=== PATIENT | female | born 1950 | race Caucasian/White ===

== ENCOUNTER 2017-11-04 19:15 | Emergency (ER) | payer BC ==
[2017-11-04] MEDS ORDERED: GlucaGen 1 MG IV ONE (19:34)
--- NOTE | 2017-11-04 19:39 | ERPHSYRPT ---
- History of Present Illness Time Seen by Provider: 11/04/17 19:34 Source: patient Exam Limitations: no limitations Patient Subjective Stated Complaint: pt states she thinks she has a piece pf chicken stuck in her throat. states she hasnt been able to swallow anything since. Triage Nursing Assessment: pt alert and oriented, answes questions approp. pt ambulatory with steady gait noted, respirations nonlabored with lungs cta. pt unable to swallow, spitting into emesis bag. skin hoawrd, warm, and dry. Physician History: The patient is a 67-year-old female complaining that while eating chicken and cucumbers, it suddenly became impossible for her to swallow the food or even water. This began about 30 minutes ago. She has tried to swallow water but she regurgitates it back up. She is unable to swallow her saliva. She denies pain. This has never happened to her before. She denies shortness of breath. Her past medical history is significant for COPD. Timing/Duration: abrupt onset, this evening Severity: moderate ENT Location: throat Prearrival Treatment: no prearrival treatment Modifying Factors: Improves With: nothing Associated Symptoms: difficulty swallowing Allergies/Adverse Reactions: No Known Drug Allergies Allergy (Verified 11/04/17 19:42) Home Medications: Albuterol 2.5 mg/3 ml Neb [Proventil 2.5 mg/3 ml Neb] 2.5 mg IH Q4H PRN PRN 11/18/12 [History] Albuterol Common Canister [Proventil Common Canister] 1 puff IH Q4HPRN PRN 03/24/15 [History] Mometasone/Formoterol [Dulera 200 Mcg/5 Mcg Inhaler] 2 puff IH BID 03/24/15 [ History] Hx Tetanus, Diphtheria Vaccination/Date Given: No Hx Influenza Vaccination/Date Given: No Hx Pneumococcal Vaccination/Date Given: No Immunizations Up to Date: No - Review of Systems Constitutional: No Fever, No Chills Eyes: No Symptoms Ears, Nose, & Throat: Other (unable to swallow) Respiratory: No Cough, No Dyspnea Cardiac: No Chest Pain, No Edema, No Syncope Abdominal/Gastrointestinal: No Abdominal Pain, No Nausea, No Vomiting, No Diarrhea Genitourinary Symptoms: No Dysuria Musculoskeletal: No Back Pain, No Neck Pain Skin: No Rash Neurological: No Dizziness, No Focal Weakness, No Sensory Changes Psychological: No Symptoms Endocrine: No Symptoms Hematologic/Lymphatic: No Symptoms Immunological/Allergic: No Symptoms All Other Systems: Reviewed and Negative - Past Medical History Pertinent Past Medical History: Yes Neurological History: No Pertinent History ENT History: No Pertinent History Cardiac History: No Pertinent History Respiratory History: Bronchitis, COPD, Emphysema Endocrine Medical History: No Pertinent History Musculoskeletal History: No Pertinent History GI Medical History: No Pertinent History History: No Pertinent History Psycho-Social History: No Pertinent History Female Reproductive Disorders: No Pertinent History - Past Surgical History Past Surgical History: No Neuro Surgical History: No Pertinent History Cardiac: No Pertinent History Respiratory: No Pertinent History Gastrointestinal: No Pertinent History Genitourinary: No Pertinent History Musculoskeletal: No Pertinent History Female Surgical History: No Pertinent History - Social History Smoking Status: Current every day smoker How long have you smoked: 30yrs Exposure to second hand smoke: No Drug Use: none Patient Lives Alone: No - Nursing Vital Signs Nursing Vital Signs: Initial Vital Signs Temperature 98.0 F 11/04/17 19:18 Pulse Rate 75 11/04/17 19:18 Respiratory Rate 18 11/04/17 19:18 Blood Pressure 151/77 11/04/17 19:18 O2 Sat by Pulse Oximetry 97 11/04/17 19:18 Pain Scale Pain Intensity 0 - Physical Exam General Appearance: mild distress, cachetic, thin Eye Exam: bilateral eye: normal inspection, PERRL Ear Exam: bilateral ear: auricle normal Nasal Exam: normal inspection Throat Exam: excessive drooling (no FB observed in throat. Pt is expectorating her own saliva.) Neck Exam: supple Cardiovascular/Respiratory Exam: normal breath sounds, regular rate/rhythm Abdominal Exam: non-tender, soft Neurologic Exam: alert, oriented x 3, sensation nml, No motor deficits Skin Exam: normal color, warm, dry SpO2 Interpretation: normal SpO2: 97 Oxygen Delivery: Room Air Ordered Tests: Active Orders 24 hr Category Date Time Status IV Insertion STAT Care 11/04/17 19:34 Active Medication Summary Discontinued Medications Generic Name Dose Route Start Last Admin Trade Name Freq PRN Reason Stop Dose Admin Glucagon 1 mg 11/04/17 19:34 11/04/17 19:48 Glucagen 1 Mg IV 11/04/17 19:35 1 mg STAT ONE Administration Glucagon Confirm 11/04/17 19:43 Glucagen 1 Mg Administered 11/04/17 19:44 Dose 1 mg .ROUTE .STK-MED ONE - Progress Progress: improved Progress Note: 11/04/17 20:31 After glucagon 1 mg IV, pt is now feeling better and can drink liquids without difficulty. Counseled pt/family regarding: diagnosis, need for follow-up - Departure Time of Disposition: 20:32 Departure Disposition: Home Clinical Impression: Esophageal obstruction due to food impaction Condition: Stable Critical Care Time: No Referrals: EILEEN MAXWELL [Nurse Practioner] - Additional Instructions: You had a food bolus stuck in your esophagus that was relieved with glucagon 1 mg by IV in the ER. Chew your food thoroughly before swallowing. Please follow -up with your primary medical care doctor for possible referral to an ENT specialist.
[2017-11-04] MEDS ORDERED: GlucaGen 1 MG ONE (19:43)
[2017-11-04 20:50] VITALS: BP 130/76; PULSE 76; O2SAT 99
== END 2017-11-04 20:50 | disposition home or self-care (01) ==
LOC: ED 19:15
DX: T18.128A Food in esophagus causing other injury, initial encounter (principal); Z79.899 Other long term (current) drug therapy
CPT/HCPCS: 36000; 96374; 99284; J1610

== ENCOUNTER 2018-04-28 10:31 | Emergency (ER) | payer BC ==
--- NOTE | 2018-04-28 11:17 | ERPHSYRPT ---
- History of Present Illness Time Seen by Provider: 04/28/18 11:11 Source: patient Exam Limitations: no limitations Patient Subjective Stated Complaint: pt here for weakness,chills and not feeling well for a week, was seen two fridays before and placed on a antiboitcs and steriods and states she if not any better. pt co pain to shoulder blades Triage Nursing Assessment: pt alert, shivering, weak, walked in, resp labored, wheezes heard worse to left side, cough productive green sputum Physician History: The patient is a 67-year-old thin female who left work this morning because she was weak, had chills, and continues to cough. About 10 days ago she saw Jaclyn Herrera for a cough. She was given a steroid injection, prednisone orally to take , and ascription for levofloxacin for 5 days. She still has the cough and now is weak. She also complains of pain in her right upper back. She denies being any more short of breath than usual. Her past medical history is significant for COPD. She smokes cigarettes. She did not receive a pneumonia or influenza vaccination. Timing/Duration: day(s) (), gradual onset, worse Cough Quality/Degree: moderate, dry cough Possible Cause: occasional episodes, smoke exposure Modifying Factors: Improves With: nothing Associated Symptoms: chills, cough Allergies/Adverse Reactions: No Known Drug Allergies Allergy (Verified 04/28/18 10:49) Home Medications: Albuterol 2.5 mg/0.5 ml [PROVENTIL Solution 2.5 MG/0.5 ML] 2.5 mg QID [History] Mometasone/Formoterol [Dulera 200 Mcg/5 Mcg Inhaler] 2 puffs DAILY 04/28/18 [ History] Prednisone 20 mg [Deltasone 20 mg] 20 mg DAILY 04/28/18 [History] levoFLOXacin [Levofloxacin] 500 mg DAILY 04/28/18 [History] Hx Tetanus, Diphtheria Vaccination/Date Given: No Hx Influenza Vaccination/Date Given: No Hx Pneumococcal Vaccination/Date Given: No Immunizations Up to Date: Yes - Review of Systems Constitutional: Chills, Fatigue, Weakness Eyes: No Symptoms Ears, Nose, & Throat: No Symptoms Respiratory: Cough Cardiac: No Chest Pain, No Edema, No Syncope Abdominal/Gastrointestinal: No Abdominal Pain, No Nausea, No Vomiting, No Diarrhea Genitourinary Symptoms: No Dysuria Musculoskeletal: No Back Pain, No Neck Pain Skin: No Rash Neurological: No Dizziness, No Focal Weakness, No Sensory Changes Psychological: No Symptoms Endocrine: No Symptoms Hematologic/Lymphatic: No Symptoms Immunological/Allergic: No Symptoms All Other Systems: Reviewed and Negative - Past Medical History Pertinent Past Medical History: Yes Neurological History: No Pertinent History ENT History: No Pertinent History Cardiac History: No Pertinent History Respiratory History: Bronchitis, COPD, Emphysema Endocrine Medical History: No Pertinent History Musculoskeletal History: No Pertinent History GI Medical History: No Pertinent History History: No Pertinent History Psycho-Social History: No Pertinent History Female Reproductive Disorders: No Pertinent History - Past Surgical History Past Surgical History: No Neuro Surgical History: No Pertinent History Cardiac: No Pertinent History Respiratory: No Pertinent History Gastrointestinal: No Pertinent History Genitourinary: No Pertinent History Musculoskeletal: No Pertinent History Female Surgical History: No Pertinent History - Social History Smoking Status: Current every day smoker How long have you smoked: 30yrs Exposure to second hand smoke: Yes Drug Use: none Patient Lives Alone: No - Female History Hx Last Menstrual Period: post Hx Now: No - Nursing Vital Signs Nursing Vital Signs: Initial Vital Signs Temperature 100.0 F 04/28/18 10:39 Pulse Rate 98 H 04/28/18 10:39 Respiratory Rate 38 H 04/28/18 10:39 Blood Pressure 152/81 04/28/18 10:39 O2 Sat by Pulse Oximetry 92 L 04/28/18 10:39 Pain Scale Pain Intensity 4 - Physical Exam General Appearance: mild distress, cachetic, thin Eye Exam: PERRL/EOMI, eyes nml inspection Ears, Nose, Throat Exam: normal ENT inspection, TMs normal, pharynx normal, moist mucous membranes Neck Exam: normal inspection, non-tender, supple, full range of motion Respiratory Exam: rhonchi, No respiratory distress Cardiovascular Exam: regular rate/rhythm, normal heart sounds Gastrointestinal/Abdomen Exam: soft, No tenderness Pelvic Exam: not done Rectal Exam: not done Back Exam: normal inspection, No CVA tenderness, No vertebral tenderness Extremity Exam: normal inspection, normal range of motion Neurologic Exam: alert, oriented x 3, cooperative, normal mood/affect, sensation nml, No motor deficits Skin Exam: normal color, warm, dry, No rash Lymphatic Exam: No adenopathy SpO2 Interpretation: borderline oxygenation SpO2: 92 Oxygen Delivery: Room Air - Radiology Exams Chest X-ray Interpretation: Interpreted by me, Infiltrates (subtle infiltrate at left lung base, comp 2V chest 09/03/15.) Ordered Tests: Active Orders 24 hr Category Date Time Status IV Insertion STAT Care 04/28/18 11:19 Active Pulse Oximetry (ED) STAT Care 04/28/18 11:19 Active CHEST 2 VIEWS (PA AND LAT) Stat Exams 04/28/18 11:19 Taken CHEST WITH CONTRAST [CT] Stat Exams 04/28/18 12:45 Ordered BLOOD CULTURE Stat Lab 04/28/18 11:45 Received CBC W DIFF Stat Lab 04/28/18 10:50 Completed CMP Stat Lab 04/28/18 10:50 Completed Lactic Acid Stat Lab 04/28/18 11:19 Results Manual Differential NC Stat Lab 04/28/18 10:50 Completed TROPONIN Q3H Lab 04/28/18 10:50 Completed TROPONIN Q3H Lab 04/28/18 14:30 Ordered TROPONIN Q3H Lab 04/28/18 17:30 Ordered TROPONIN Q3H Lab 04/28/18 20:30 Ordered TROPONIN Q3H Lab 04/28/18 23:30 Ordered Respiratory Nebulizer STAT RT 04/28/18 11:20 Completed Respiratory Therapy Assessment DAILY RT 04/28/18 11:34 Completed Medication Summary Discontinued Medications Generic Name Dose Route Start Last Admin Trade Name Freq PRN Reason Stop Dose Admin Acetaminophen 1,000 mg 04/28/18 11:20 04/28/18 11:29 Tylenol Extra Strength 500 Mg PO 04/28/18 11:21 1,000 mg STAT STA Administration Acetaminophen Confirm 04/28/18 11:27 Tylenol Extra Strength 500 Mg Administered 04/28/18 11:28 Dose 1,000 mg .ROUTE .STK-MED ONE Albuterol/Ipratropium 3 ml 04/28/18 11:19 04/28/18 11:34 Duoneb 0.5-3 Mg/3 Ml Neb IH 04/28/18 11:20 3 ml STAT ONE Administration Albuterol/Ipratropium Confirm 04/28/18 11:37 Duoneb 0.5-3 Mg/3 Ml Neb Administered 04/28/18 11:38 Dose 3 ml IH .STK-MED ONE Lab/Rad Data: Laboratory Result Diagrams 04/28/18 10:50 04/28/18 10:50 Laboratory Results 04/28/18 04/28/18 04/28/18 Range/Units 11:45 11:19 10:50 WBC (4.0-10.5) K/mm3 RBC (4.1-5.4) M/mm3 Hgb (12.0-16.0) gm/dl Hct (35-47) % MCV (78-100) fl MCH (26-32) pg MCHC (32-36) g/dl RDW (11.5-14.0) % Plt Count (150-450) K/mm3 MPV (6-9.5) fl Segmented Neutrophils (36.0-66.0) % Band Neutrophils (0.0-2.0) % Lymphocytes (Manual) (24-44) % Monocytes (Manual) (0.0-12.0) % Platelet Estimate (NORMAL) RBC Morphology Sodium (137-145) mmol/L Potassium (3.5-5.1) mmol/L Chloride (98-107) mmol/L Carbon Dioxide (22-30) mmol/L Anion Gap (5-15) MEQ/L BUN (7-17) mg/dL Creatinine (0.52-1.04) mg/dL Estimated GFR ML/MIN Glucose (74-106) mg/dL Lactic Acid 2.1 H (0.4-2.0) Calcium (8.4-10.2) mg/dL Total Bilirubin (0.2-1.3) mg/dL AST (14-36) U/L ALT (0-35) U/L Alkaline Phosphatase (38-126) U/L Troponin I < 0.012 (0.000-0.034) ng/mL Serum Total Protein (6.3-8.2) g/dL Albumin (3.5-5.0) g/dL Influenza Type A Ag NEGATIVE (NEGATIVE) Influenza Type B Ag NEGATIVE (NEGATIVE) RSV (PCR) NEGATIVE (Negative) 04/28/18 04/28/18 Range/Units 10:50 10:50 WBC 19.2 H (4.0-10.5) K/mm3 RBC 4.89 (4.1-5.4) M/mm3 Hgb 15.2 (12.0-16.0) gm/dl Hct 45.1 (35-47) % MCV 92.2 (78-100) fl MCH 31.1 (26-32) pg MCHC 33.7 (32-36) g/dl RDW 13.7 (11.5-14.0) % Plt Count 265 (150-450) K/mm3 MPV 10.3 H (6-9.5) fl Segmented Neutrophils 80 H (36.0-66.0) % Band Neutrophils 4 H (0.0-2.0) % Lymphocytes (Manual) 10 L (24-44) % Monocytes (Manual) 6 (0.0-12.0) % Platelet Estimate NORMAL (NORMAL) RBC Morphology NORMAL Sodium 134 L (137-145) mmol/L Potassium 4.3 (3.5-5.1) mmol/L Chloride 96 L (98-107) mmol/L Carbon Dioxide 29 (22-30) mmol/L Anion Gap 13.8 (5-15) MEQ/L BUN 20 H (7-17) mg/dL Creatinine 0.86 (0.52-1.04) mg/dL Estimated GFR > 60.0 ML/MIN Glucose 86 (74-106) mg/dL Lactic Acid (0.4-2.0) Calcium 9.6 (8.4-10.2) mg/dL Total Bilirubin 0.50 (0.2-1.3) mg/dL AST 22 (14-36) U/L ALT 18 (0-35) U/L Alkaline Phosphatase 77 (38-126) U/L Troponin I (0.000-0.034) ng/mL Serum Total Protein 6.9 (6.3-8.2) g/dL Albumin 4.2 (3.5-5.0) g/dL Influenza Type A Ag (NEGATIVE) Influenza Type B Ag (NEGATIVE) RSV (PCR) (Negative) - Progress Progress: improved Air Movement: fair Progress Note: 04/28/18 12:46 Pt given duo neb and tylenol. Pt feels better. 04/28/18 13:17 Pt initially agrees to chest CT, Now she declines. will give IV antibiotics. Blood Culture(s) Obtained: Yes Counseled pt/family regarding: lab results, diagnosis, need for follow-up, rad results - Departure Time of Disposition: 13:21 Departure Disposition: Home Clinical Impression: Bronchitis, Infiltrate noted on imaging study Condition: Stable Critical Care Time: No Referrals: GREGORIO HERRERA [Primary Care Provider] - Additional Instructions: You have bronchitis. You were given a DuoNeb treatment and Tylenol 1000 mg in the ER. You were also given Rocephin 1 g by IV in the ER. Take azithromycin 500 mg today and then 250 mg daily for days 2 through 5. Take Tylenol 1000 mg every 6-8 hours as needed for chills and discomfort. Follow-up with your primary medical doctor in one to 2 days. Prescriptions: Azithromycin 250 mg [Zithromax 250 MG TABLET] 250 mg PO ZPACK #6 tablet
[2018-04-28 11:25] LABS: Hematocrit 45.1 % (35-47); Hemoglobin 15.2 gm/dl (12.0-16.0); Mean Cell Volume 92.2 fl (78-100); Mean Corpuscular Hemoglobin 31.1 pg (26-32); Mean Corpuscular Hgb Concent. 33.7 g/dl (32-36); Mean Platelet Volume 10.3 fl (6-9.5); Platelet Count 265 K/mm3 (150-450); Red Blood Count 4.89 M/mm3 (4.1-5.4); Red Cell Distribution Width 13.7 % (11.5-14.0); White Blood Count 19.2 K/mm3 (4.0-10.5)
[2018-04-28] MEDS ORDERED: TYLENOL EXTRA STRENGTH 500 MG ONE (11:27)
[2018-04-28] MEDS: TYLENOL EXTRA STRENGTH 500 MG PO STA (11:29)
[2018-04-28] MEDS: DUONEB 0.5-3 MG/3 ml Neb IH ONE (11:34)
[2018-04-28] MEDS ORDERED: DUONEB 0.5-3 MG/3 ml Neb IH ONE (11:37)
[2018-04-28 11:47] LABS: Lactic Acid 2.1 (0.4-2.0)
[2018-04-28 11:52] LABS: ALBUMIN 4.2 g/dL (3.5-5.0); ALKALINE PHOSPHATASE 77 U/L (38-126); ANION GAP 13.8 MEQ/L (5-15); BLOOD UREA NITROGEN 20 mg/dL (7-17); CHLORIDE 96 mmol/L (98-107); Calcium 9.6 mg/dL (8.4-10.2); Carbon Dioxide 29 mmol/L (22-30); Creatinine 1 0.86 mg/dL (0.52-1.04); Glucose 86 mg/dL (74-106); Potassium 4.3 mmol/L (3.5-5.1); SGOT/AST 22 U/L (14-36); SGPT/ALT 18 U/L (0-35); SODIUM 134 mmol/L (137-145); Total Protein 6.9 g/dL (6.3-8.2)
[2018-04-28 12:04] LABS: BAND 4 % (0.0-2.0); Lymphocytes 10 % (24-44); Monocyte 6 % (0.0-12.0); Neutrophils 80 % (36.0-66.0); Total Cells Counted 100
[2018-04-28 12:05] LABS: Platelet Estimate NORMAL (NORMAL)
[2018-04-28 12:29] LABS: INFLUENZA A NEGATIVE (NEGATIVE); INFLUENZA B NEGATIVE (NEGATIVE); RESPIRATORY SYNCTIAL VIRUS NEGATIVE (Negative)
[2018-04-28] MEDS ORDERED: ROCEPHIN 1 Gm-D5w 50 ml Bag** 1 G/50 ML IVPB IV ONE (13:24)
[2018-04-28] MEDS: ROCEPHIN 1 Gm-D5w 50 ml Bag** 1 G/50 ML IVPB IV STA (13:30)
[2018-04-28 13:52] VITALS: BP 100/60; PULSE 88; O2SAT 93
--- NOTE | 2018-04-28 19:30 | XRAY ---
Indication: Fever, cough, and chest pain. History of COPD. Comparison: September 03, 2015. PA/lateral chest remains hyperinflated and clear. Heart and mediastinal structures within normal limits. Bony thorax intact again with minimal scoliosis. Impression: Stable nonacute hyperinflated chest.
== END 2018-04-28 13:53 | disposition home or self-care (01) ==
LOC: ED 10:31
DX: J40 Bronchitis, not specified as acute or chronic (principal); R91.8 Other nonspecific abnormal finding of lung field; Z79.899 Other long term (current) drug therapy
CPT/HCPCS: 36000; 36415; 71046; 80053; 83605; 84484; 85025; 87040; 87631; 94640; 96365; 99284; J0696; A9270-GY

== ENCOUNTER 2020-11-19 16:37 | Observation (INO) | payer SELFPAY ==
--- NOTE | 2020-11-19 16:42 | ERPHSYRPT ---
- History of Present Illness Time Seen by Provider: 11/19/20 16:41 Source: patient, family Exam Limitations: no limitations Physician History: This is a 70-year-old white female who has significant COPD but has not had an exacerbation in quite some time per her report. She has no diagnosed coronary artery disease. She is never had a myocardial infarction. She presents with worsening shortness of breath since the Sunday prior to this evaluation. She was seen at her primary care physician's office on Sunday prior to this evaluation and was given an some type of injection but she does not recall if it was a steroid or an antibiotic. She was then given a prescription for a medication would start with the letter O. Again, she does not know what this medication is. Over the last couple days patient has been outside often in the hot sun. Today her shortness of breath was worse and therefore she drove herself to the emergency department. Upon arrival, patient's room air oxygen level was 88%. Patient denies chest pain. She denies fevers. She had no na usea vomiting or diarrhea. She has no abdominal pain. Patient continues to smoke. Timing/Duration: week(s) (1), worse Activities at Onset: other (In the sun) Severity of Dyspnea-Max: moderate Severity of Dyspnea-Current: moderate Possible Cause: occasional episodes Modifying Factors: Improves With: activity Associated Symptoms: No cough, No fever Allergies/Adverse Reactions: No Known Drug Allergies Allergy (Verified 11/19/20 16:49) Home Medications: Mometasone/Formoterol [Dulera 200 Mcg/5 Mcg Inhaler] 2 puffs DAILY 04/28/18 [History] Hx Tetanus, Diphtheria Vaccination/Date Given: No Hx Influenza Vaccination/Date Given: No Hx Pneumococcal Vaccination/Date Given: No Travel Risk - International Travel Have you traveled outside of the country in past 3 weeks: No - Coronavirus Screening Are you exhibiting any of the following symptoms?: No Close contact with a COVID-19 positive Pt in past 14-21 Days: No - Review of Systems Constitutional: No Symptoms Eyes: No Symptoms Ears, Nose, & Throat: No Symptoms Respiratory: Dyspnea Cardiac: No Symptoms Abdominal/Gastrointestinal: No Symptoms Genitourinary Symptoms: No Symptoms Musculoskeletal: No Symptoms Skin: No Symptoms Neurological: No Symptoms Psychological: No Symptoms Endocrine: No Symptoms Hematologic/Lymphatic: No Symptoms Immunological/Allergic: No Symptoms All Other Systems: Reviewed and Negative - Past Medical History Pertinent Past Medical History: Yes Neurological History: No Pertinent History ENT History: No Pertinent History Cardiac History: No Pertinent History Respiratory History: COPD Endocrine Medical History: No Pertinent History Musculoskeletal History: No Pertinent History GI Medical History: No Pertinent History History: No Pertinent History Psycho-Social History: No Pertinent History Female Reproductive Disorders: No Pertinent History - Past Surgical History Past Surgical History: No Neuro Surgical History: No Pertinent History Cardiac: No Pertinent History Respiratory: No Pertinent History Gastrointestinal: No Pertinent History Genitourinary: No Pertinent History Musculoskeletal: No Pertinent History Female Surgical History: No Pertinent History - Social History Smoking Status: Current every day smoker How long have you smoked: 30yrs Exposure to second hand smoke: Yes Drug Use: none Patient Lives Alone: No - Nursing Vital Signs Nursing Vital Signs: Initial Vital Signs Temperature 97.9 F 11/19/20 16:40 Pulse Rate 97 H 11/19/20 16:40 Respiratory Rate 24 11/19/20 16:40 Blood Pressure 153/96 11/19/20 16:40 O2 Sat by Pulse Oximetry 88 L 11/19/20 16:40 Pain Scale Pain Intensity 0 - Physical Exam General Appearance: mild distress, alert, anxiety, thin Eye Exam: PERRL/EOMI, eyes nml inspection Ears, Nose, Throat Exam: hearing grossly normal, normal ENT inspection, normal pharynx Neck Exam: normal inspection, non-tender, supple, full range of motion Respiratory Exam: normal breath sounds, lungs clear, respiratory distress (Mild), airway intact, No chest tenderness Cardiovascular/Chest Exam: normal heart sounds, regular rate/rhythm, normal peripheral pulses Abdominal/Gastrointestinal Exam: soft, normal bowel sounds, No tenderness Rectal Exam: not done Extremity Exam: non-tender Neurologic Exam: alert, oriented x 3, cooperative, gas regulator repairer helper II-XII nml as tested, normal mood/affect, nml cerebellar function, nml station & gait, sensation nml Skin Exam: normal color, warm, dry Lymphatic Exam: No adenopathy SpO2 Interpretation: normal O2 Delivery: Room Air - Course Nursing assessment & vital signs reviewed: Yes EKG Interpreted by Me: RATE (98), Sinus Rhythm, NORMAL AXIS, NORMAL INTERVALS, NORMAL QRS, NORMAL ST-T, Other (No acute ischemic changes. When compared to EKG dated 03/24/2015 there is no changes.) Ordered Tests: Active Orders 24 hr Category Date Time Status Broom Man STAT Care 11/19/20 17:19 Active EKG-ER Only STAT Care 11/19/20 17:18 Active IV Insertion STAT Care 11/19/20 17:18 Active Pulse Oximetry (ED) STAT Care 11/19/20 17:18 Active CHEST 1 VIEW (PORTABLE) Stat Exams 11/19/20 18:25 Taken BLOOD CULTURE Stat Lab 11/19/20 17:50 Received CBC W DIFF Stat Lab 11/19/20 17:18 Completed CMP Stat Lab 11/19/20 17:18 Completed D-DIMER QUANTITATIVE Stat Lab 11/19/20 17:18 Completed Lactic Acid Stat Lab 11/19/20 17:41 Completed NT PRO BNP Stat Lab 11/19/20 17:18 Completed PROCALCITONIN Stat Lab 11/19/20 Ordered TROPONIN Q3H Lab 11/19/20 17:30 Completed TROPONIN Q3H Lab 11/19/20 20:30 Ordered TROPONIN Q3H Lab 11/19/20 23:30 Ordered TROPONIN Q3H Lab 11/20/20 02:30 Ordered TROPONIN Q3H Lab 11/20/20 05:30 Ordered Respiratory Therapy Assessment DAILY RT 11/19/20 17:09 Active Transfer Order Routine Transfer 11/19/20 Ordered Medication Summary Generic Name Dose Route Start Last Admin Trade Name Freq PRN Reason Stop Dose Admin Ceftriaxone Sodium/Dextrose 1 g in 50 mls @ 100 mls/hr 11/19/20 18:59 11/19/20 19:08 Rocephin 1 Gm-D5w 50 Ml Bag IV 11/19/20 19:28 100 mls/hr STAT STA 100 mls/hr Administration Discontinued Medications Generic Name Dose Route Start Last Admin Trade Name Freq PRN Reason Stop Dose Admin Albuterol/Ipratropium Confirm 11/19/20 17:02 Duoneb 0.5-3 Mg/3 Ml Neb Administered 11/19/20 17:03 Dose 3 ml IH .STK-MED ONE Albuterol/Ipratropium 3 ml 11/19/20 17:08 11/19/20 17:05 Duoneb 0.5-3 Mg/3 Ml Neb IH 11/19/20 17:09 3 ml STAT ONE Administration Ceftriaxone Sodium/Dextrose Confirm 11/19/20 19:05 Rocephin 1 Gm-D5w 50 Ml Bag Administered 11/19/20 19:06 Dose 1 g in 50 mls @ ud IV .STK-MED ONE Methylprednisolone Sodium Succinate 125 mg 11/19/20 17:18 11/19/20 17:22 Solu-Medrol 125 Mg IV 11/19/20 17:19 125 mg STAT ONE Administration Methylprednisolone Sodium Succinate Confirm 11/19/20 17:21 Solu-Medrol 125 Mg Administered 11/19/20 17:22 Dose 125 mg .ROUTE .STK-MED ONE Lab/Rad Data: Laboratory Result Diagrams 11/19/20 17:18 11/19/20 17:18 Laboratory Results 11/19/20 11/19/20 11/19/20 Range/Units 17:41 17:30 17:18 WBC (4.0-10.5) K/mm3 RBC (4.1-5.4) M/mm3 Hgb (12.0-16.0) gm/dl Hct (35-47) % MCV (78-100) fl MCH (26-32) pg MCHC (32-36) g/dl RDW (11.5-14.0) % Plt Count (150-450) K/mm3 MPV (7.5-11.0) fl Gran % (36.0-66.0) % Eos # (Auto) (0-0.5) Absolute Lymphs (auto) (1.0-4.6) Absolute Monos (auto) (0.0-1.3) Lymphocytes % (24.0-44.0) % Monocytes % (0.0-12.0) % Eosinophils % (0.00-5.0) % Basophils % (0.0-0.4) % Absolute Granulocytes (1.4-6.9) Basophils # (0-0.4) D-Dimer 420 (215-500) ng/mL Sodium (137-145) mmol/L Potassium (3.5-5.1) mmol/L Chloride (98-107) mmol/L Carbon Dioxide (22-30) mmol/L Anion Gap (5-15) MEQ/L BUN (7-17) mg/dL Creatinine (0.52-1.04) mg/dL Estimated GFR ML/MIN Glucose (74-106) mg/dL Lactic Acid 1.3 (0.4-2.0) Calcium (8.4-10.2) mg/dL Total Bilirubin (0.2-1.3) mg/dL AST (14-36) U/L ALT (0-35) U/L Alkaline Phosphatase (38-126) U/L Troponin I < 0.012 (0.000-0.034) ng/mL NT-Pro-B Natriuret Pep (0-900) pg/mL Serum Total Protein (6.3-8.2) g/dL Albumin (3.5-5.0) g/dL 11/19/20 11/19/20 Range/Units 17:18 17:18 WBC 13.3 H (4.0-10.5) K/mm3 RBC 4.62 (4.1-5.4) M/mm3 Hgb 13.9 (12.0-16.0) gm/dl Hct 42.7 (35-47) % MCV 92.4 (78-100) fl MCH 30.1 (26-32) pg MCHC 32.6 (32-36) g/dl RDW 13.9 (11.5-14.0) % Plt Count 289 (150-450) K/mm3 MPV 10.3 (7.5-11.0) fl Gran % 66.9 H (36.0-66.0) % Eos # (Auto) 0.22 (0-0.5) Absolute Lymphs (auto) 2.45 (1.0-4.6) Absolute Monos (auto) 1.69 H (0.0-1.3) Lymphocytes % 18.5 L (24.0-44.0) % Monocytes % 12.7 H (0.0-12.0) % Eosinophils % 1.7 (0.00-5.0) % Basophils % 0.2 (0.0-0.4) % Absolute Granulocytes 8.89 H (1.4-6.9) Basophils # 0.02 (0-0.4) D-Dimer (215-500) ng/mL Sodium 129 L (137-145) mmol/L Potassium 4.7 (3.5-5.1) mmol/L Chloride 93 L (98-107) mmol/L Carbon Dioxide 26 (22-30) mmol/L Anion Gap 13.7 (5-15) MEQ/L BUN 13 (7-17) mg/dL Creatinine 0.76 (0.52-1.04) mg/dL Estimated GFR > 60.0 ML/MIN Glucose 95 (74-106) mg/dL Lactic Acid (0.4-2.0) Calcium 9.2 (8.4-10.2) mg/dL Total Bilirubin 0.50 (0.2-1.3) mg/dL AST 32 (14-36) U/L ALT 15 (0-35) U/L Alkaline Phosphatase 93 (38-126) U/L Troponin I (0.000-0.034) ng/mL NT-Pro-B Natriuret Pep 387 (0-900) pg/mL Serum Total Protein 7.0 (6.3-8.2) g/dL Albumin 4.1 (3.5-5.0) g/dL - Progress Progress: improved, re-examined Air Movement: fair Progress Note: 11/19/20 19:02 Chest x-ray shows questionable infiltrate left lower lobe. Medical decision making: This patient has acute COPD exacerbation. She came in hypoxic with a room air oxygen level of 88%. She has improved. There is is a slight left lower lobe infiltrate on her chest x-ray today. She still has some tachypnea but that is improved as well. There is no evidence of any acute cardiac issues. I spoke with Dr. Martina Ramey and reviewed the patient history, radiographic findings, laboratory findings, EKG findings. We both agreed the patient should be placed in observation in the hospital where we can provide her with intravenous antibiotics, intravenous steroids, oxygen supplementation and RT nebulizer breathing treatments. Blood Culture(s) Obtained: Yes Antibiotics given: Yes Counseled pt/family regarding: lab results, diagnosis, rad results - Departure Departure Disposition: Observation Clinical Impression: Infiltrate of lower lobe of left lung present on imaging study, COPD exacerbation, Hypoxia Condition: Stable Critical Care Time: Yes Critical Care Time(excluding separately billable procedures): Critical 30-74 mins Referrals: GREGORIO PARISI [Primary Care Provider] - Instructions: Chronic Obstructive Pulmonary Disease
[2020-11-19] MEDS ORDERED: DUONEB 0.5-3 MG/3 ml Neb IH ONE ×2 (17:02→17:08)
[2020-11-19] MEDS ORDERED: solu-MEDROL 125 MG IV ONE (17:18)
[2020-11-19] MEDS ORDERED: solu-MEDROL 125 MG ONE (17:21)
[2020-11-19 17:27] LABS: Absolute Neutrophil Ct (ANC) 8.89 (1.4-6.9); BASOPHIL % 0.2 % (0.0-0.4); Basophil (Absolute #) 0.02 (0-0.4); Eosinophil % 1.7 % (0.00-5.0); Eosinophil (Absolute #) 0.22 (0-0.5); Hematocrit 42.7 % (35-47); Hemoglobin 13.9 gm/dl (12.0-16.0); Lymphocyte (Absolute #) 2.45 (1.0-4.6); Lymphocytes % 18.5 % (24.0-44.0); Mean Cell Volume 92.4 fl (78-100); Mean Corpuscular Hemoglobin 30.1 pg (26-32); Mean Corpuscular Hgb Concent. 32.6 g/dl (32-36); Mean Platelet Volume 10.3 fl (7.5-11.0); Monocyte (Absolute #) 1.69 (0.0-1.3); Monocytes % 12.7 % (0.0-12.0); Neutrophil % 66.9 % (36.0-66.0); Platelet Count 289 K/mm3 (150-450); Red Blood Count 4.62 M/mm3 (4.1-5.4); Red Cell Distribution Width 13.9 % (11.5-14.0); White Blood Count 13.3 K/mm3 (4.0-10.5)
[2020-11-19 17:39] LABS: ALBUMIN 4.1 g/dL (3.5-5.0); ALKALINE PHOSPHATASE 93 U/L (38-126); ANION GAP 13.7 MEQ/L (5-15); BLOOD UREA NITROGEN 13 mg/dL (7-17); CHLORIDE 93 mmol/L (98-107); Calcium 9.2 mg/dL (8.4-10.2); Carbon Dioxide 26 mmol/L (22-30); Creatinine 1 0.76 mg/dL (0.52-1.04); EST GLOMERULAR FILTRATION RATE > 60.0 ML/MIN; Glucose 95 mg/dL (74-106); NT PRO BNP 387 pg/mL (0-900); Potassium 4.7 mmol/L (3.5-5.1); SGOT/AST 32 U/L (14-36); SGPT/ALT 15 U/L (0-35); SODIUM 129 mmol/L (137-145)
[2020-11-19] MEDS ORDERED: ROCEPHIN 1 Gm-D5w 50 ml Bag** 1 G/50 ML IVPB IV STA (18:59)
[2020-11-19] MEDS ORDERED: ROCEPHIN 1 Gm-D5w 50 ml Bag** 1 G/50 ML IVPB IV ONE (19:05)
[2020-11-19 19:16] LABS: Slide Review 1 YES
--- NOTE | 2020-11-19 19:44 | XRAY ---
Indication: Short of breath. COPD. Comparison: April 28, 2018. Portable chest again demonstrates COPD with new left base infiltrate/atelectasis and small effusion. Remaining heart and right lung unremarkable. Bony thorax intact again with mild double curvature scoliosis.
[2020-11-19] MEDS ORDERED: Zofran 4 MG/2 ML VIAL IV PRN (22:13)
[2020-11-19] MEDS ORDERED: TYLENOL 325 MG PO PRN (22:13)
[2020-11-19] MEDS ORDERED: solu-MEDROL 125 MG IV SCH (22:13)
[2020-11-20] MEDS: solu-MEDROL 125 MG IV SCH ×4 (00:40→23:45)
[2020-11-20] MEDS ORDERED: DUONEB 0.5-3 MG/3 ml Neb IH ONE (05:24)
[2020-11-20] MEDS: DUONEB 0.5-3 MG/3 ml Neb IH SCH ×4 (05:25→19:17)
[2020-11-20 07:03] LABS: Absolute Neutrophil Ct (ANC) 7.73 (1.4-6.9); BASOPHIL % 0.1 % (0.0-0.4); Basophil (Absolute #) 0.01 (0-0.4); Eosinophil (Absolute #) 0 (0-0.5); Hematocrit 44.2 % (35-47); Hemoglobin 14.2 gm/dl (12.0-16.0); Lymphocyte (Absolute #) 0.84 (1.0-4.6); Lymphocytes % 9.6 % (24.0-44.0); Mean Cell Volume 92.1 fl (78-100); Mean Corpuscular Hemoglobin 29.6 pg (26-32); Mean Corpuscular Hgb Concent. 32.1 g/dl (32-36); Mean Platelet Volume 10.4 fl (7.5-11.0); Monocyte (Absolute #) 0.14 (0.0-1.3); Monocytes % 1.6 % (0.0-12.0); Neutrophil % 88.7 % (36.0-66.0); Platelet Count 298 K/mm3 (150-450); Red Cell Distribution Width 13.7 % (11.5-14.0); White Blood Count 8.7 K/mm3 (4.0-10.5)
[2020-11-20 07:22] LABS: ALBUMIN 3.9 g/dL (3.5-5.0); ALKALINE PHOSPHATASE 80 U/L (38-126); ANION GAP 12.1 MEQ/L (5-15); BLOOD UREA NITROGEN 13 mg/dL (7-17); CHLORIDE 93 mmol/L (98-107); Calcium 9.5 mg/dL (8.4-10.2); Carbon Dioxide 30 mmol/L (22-30); Creatinine 1 0.65 mg/dL (0.52-1.04); EST GLOMERULAR FILTRATION RATE > 60.0 ML/MIN; Glucose 146 mg/dL (74-106); NT PRO BNP 512 pg/mL (0-900); SGOT/AST 26 U/L (14-36); SGPT/ALT 16 U/L (0-35); SODIUM 130 mmol/L (137-145); Total Protein 6.8 g/dL (6.3-8.2)
[2020-11-20] MEDS: Zithromax 500 MG/ 250 ML NaCl Premix 500 MG/250 ML IVPB IV SCH (09:53)
--- NOTE | 2020-11-20 15:01 | PCM.HP ---
History of Present Illness - Chief Complaint Chief Complaint: Left pneumonia, COPD Exac, hypoxia History of Present Illness: is a 70 year old female pt of Dr. Dominguez (sees Earline Herrera) with COPD who came to ER c/o aout 1 wk of cough and nasal drainage, worsening over the past 4 d. She was admitted for PNA and COPD exacerbation. Placed on rocephin and zithromax, with IV steroids. Pt saw Earline last week and was given IM celestone and po doxycycline). - Review of Systems Respiratory: Cough (minimal), Short Of Breath All Other Systems: Reviewed and Negative Medications & Allergies Home Medications: Home Medication List Mometasone/Formoterol [Dulera 200 Mcg/5 Mcg Inhaler] 2 puffs DAILY 04/28/18 [History Confirmed 11/19/20] Allergies/Adverse Reactions: Allergies Allergy/AdvReac Type Severity Reaction Status Date / Time No Known Drug Allergies Allergy Verified 11/19/20 16:49 - Past Medical History Past Medical History: Yes Neurological History: No Pertinent History ENT History: No Pertinent History Cardiac History: No Pertinent History Respiratory History: COPD Endocrine Medical History: No Pertinent History Musculoskelatal History: No Pertinent History GI Medical History: No Pertinent History History: No Pertinent History Pyscho-Social History: No Pertinent History Reproductive Disorders: No Pertinent History Comment: Needs shoulder on right shoulder - Female History Are you now?: No - Past Surgical History Past Surgical History: No Neuro Surgical History: No Pertinent History Cardiac History: No Pertinent History Respiratory Surgery: No Pertinent History GI Surgical History: No Pertinent History Genitourinary Surgical Hx: No Pertinent History Musculskeletal Surgical Hx: No Pertinent History Female Surgical History: No Pertinent History - Social History Smoking Status: Current every day smoker How long have you smoked: 30yrs Exposure to second hand smoke: Yes Alcohol: None Drug Use: none - Physical Exam Vital Signs: Vital Signs - 24 hr Temp Pulse Resp BP Pulse Ox 11/20/20 14:37 72 20 93 L 11/20/20 11:51 98.6 F 87 16 129/67 95 11/20/20 10:32 69 24 95 11/20/20 07:41 97.7 F 72 16 114/60 92 L 11/20/20 05:31 95 11/20/20 05:29 67 16 95 11/20/20 04:05 98.1 F 69 18 116/76 94 L 11/19/20 23:28 73 26 H 95 11/19/20 23:20 95 11/19/20 22:43 97.5 F 73 24 112/58 94 L 11/19/20 21:00 73 20 120/72 94 L 11/19/20 20:30 76 22 119/74 95 11/19/20 18:01 91 H 24 134/89 94 L 11/19/20 17:49 93 H 25 H 131/81 95 11/19/20 17:10 101 H 26 H 95 11/19/20 16:40 97.9 F 97 H 22 153/96 88 L Oxygen-Last 24 hours Oxygen Flowrate (L/min)-RT 2 General Appearance: no apparent distress, alert, thin Neurologic Exam: oriented x 3 Eye Exam: eyes nml inspection Ears, Nose, Throat Exam: moist mucous membranes Neck Exam: normal inspection, non-tender, No lymphadenopathy Respiratory Exam: diminished breath sounds (poor air exchange), rhonchi (RML), wheezing (faint, exp, RUL) Cardiovascular Exam: regular rate/rhythm, normal heart sounds, No murmur Gastrointestinal/Abdomen Exam: soft, normal bowel sounds, No tenderness, No distention, No mass, No guarding, No rebound Extremity Exam: normal inspection, No pedal edema, No swelling Results - Labs Lab/Micro Results: Lab Results-Last 24 Hours 11/19/20 11/19/20 11/19/20 Range/Units 17:18 17:18 17:18 WBC 13.3 H (4.0-10.5) K/mm3 RBC 4.62 (4.1-5.4) M/mm3 Hgb 13.9 (12.0-16.0) gm/dl Hct 42.7 (35-47) % MCV 92.4 (78-100) fl MCH 30.1 (26-32) pg MCHC 32.6 (32-36) g/dl RDW 13.9 (11.5-14.0) % Plt Count 289 (150-450) K/mm3 MPV 10.3 (7.5-11.0) fl Gran % 66.9 H (36.0-66.0) % Eos # (Auto) 0.22 (0-0.5) Absolute Lymphs (auto) 2.45 (1.0-4.6) Absolute Monos (auto) 1.69 H (0.0-1.3) Lymphocytes % 18.5 L (24.0-44.0) % Monocytes % 12.7 H (0.0-12.0) % Eosinophils % 1.7 (0.00-5.0) % Basophils % 0.2 (0.0-0.4) % Absolute Granulocytes 8.89 H (1.4-6.9) Basophils # 0.02 (0-0.4) D-Dimer 420 (215-500) ng/mL Sodium 129 L (137-145) mmol/L Potassium 4.7 (3.5-5.1) mmol/L Chloride 93 L (98-107) mmol/L Carbon Dioxide 26 (22-30) mmol/L Anion Gap 13.7 (5-15) MEQ/L BUN 13 (7-17) mg/dL Creatinine 0.76 (0.52-1.04) mg/dL Estimated GFR > 60.0 ML/MIN Glucose 95 (74-106) mg/dL Lactic Acid (0.4-2.0) Calcium 9.2 (8.4-10.2) mg/dL Total Bilirubin 0.50 (0.2-1.3) mg/dL AST 32 (14-36) U/L ALT 15 (0-35) U/L Alkaline Phosphatase 93 (38-126) U/L Troponin I (0.000-0.034) ng/mL NT-Pro-B Natriuret Pep 387 (0-900) pg/mL Serum Total Protein 7.0 (6.3-8.2) g/dL Albumin 4.1 (3.5-5.0) g/dL Procalcitonin (0.030-0.080) ng/mL SARS-CoV-2 (PCR) (NEGATIVE) Slides for Path Review YES 11/19/20 11/19/20 11/19/20 Range/Units 17:30 17:41 19:00 WBC (4.0-10.5) K/mm3 RBC (4.1-5.4) M/mm3 Hgb (12.0-16.0) gm/dl Hct (35-47) % MCV (78-100) fl MCH (26-32) pg MCHC (32-36) g/dl RDW (11.5-14.0) % Plt Count (150-450) K/mm3 MPV (7.5-11.0) fl Gran % (36.0-66.0) % Eos # (Auto) (0-0.5) Absolute Lymphs (auto) (1.0-4.6) Absolute Monos (auto) (0.0-1.3) Lymphocytes % (24.0-44.0) % Monocytes % (0.0-12.0) % Eosinophils % (0.00-5.0) % Basophils % (0.0-0.4) % Absolute Granulocytes (1.4-6.9) Basophils # (0-0.4) D-Dimer (215-500) ng/mL Sodium (137-145) mmol/L Potassium (3.5-5.1) mmol/L Chloride (98-107) mmol/L Carbon Dioxide (22-30) mmol/L Anion Gap (5-15) MEQ/L BUN (7-17) mg/dL Creatinine (0.52-1.04) mg/dL Estimated GFR ML/MIN Glucose (74-106) mg/dL Lactic Acid 1.3 (0.4-2.0) Calcium (8.4-10.2) mg/dL Total Bilirubin (0.2-1.3) mg/dL AST (14-36) U/L ALT (0-35) U/L Alkaline Phosphatase (38-126) U/L Troponin I < 0.012 (0.000-0.034) ng/mL NT-Pro-B Natriuret Pep (0-900) pg/mL Serum Total Protein (6.3-8.2) g/dL Albumin (3.5-5.0) g/dL Procalcitonin 0.097 H (0.030-0.080) ng/mL SARS-CoV-2 (PCR) (NEGATIVE) Slides for Path Review 11/19/20 11/19/20 11/19/20 Range/Units 19:36 19:44 22:13 WBC (4.0-10.5) K/mm3 RBC (4.1-5.4) M/mm3 Hgb (12.0-16.0) gm/dl Hct (35-47) % MCV (78-100) fl MCH (26-32) pg MCHC (32-36) g/dl RDW (11.5-14.0) % Plt Count (150-450) K/mm3 MPV (7.5-11.0) fl Gran % (36.0-66.0) % Eos # (Auto) (0-0.5) Absolute Lymphs (auto) (1.0-4.6) Absolute Monos (auto) (0.0-1.3) Lymphocytes % (24.0-44.0) % Monocytes % (0.0-12.0) % Eosinophils % (0.00-5.0) % Basophils % (0.0-0.4) % Absolute Granulocytes (1.4-6.9) Basophils # (0-0.4) D-Dimer (215-500) ng/mL Sodium (137-145) mmol/L Potassium (3.5-5.1) mmol/L Chloride (98-107) mmol/L Carbon Dioxide (22-30) mmol/L Anion Gap (5-15) MEQ/L BUN (7-17) mg/dL Creatinine (0.52-1.04) mg/dL Estimated GFR ML/MIN Glucose (74-106) mg/dL Lactic Acid (0.4-2.0) Calcium (8.4-10.2) mg/dL Total Bilirubin (0.2-1.3) mg/dL AST (14-36) U/L ALT (0-35) U/L Alkaline Phosphatase (38-126) U/L Troponin I < 0.012 (0.000-0.034) ng/mL NT-Pro-B Natriuret Pep (0-900) pg/mL Serum Total Protein (6.3-8.2) g/dL Albumin (3.5-5.0) g/dL Procalcitonin 0.100 H (0.030-0.080) ng/mL SARS-CoV-2 (PCR) NEGATIVE (NEGATIVE) Slides for Path Review 11/19/20 11/20/20 11/20/20 Range/Units 23:30 03:00 05:40 WBC (4.0-10.5) K/mm3 RBC (4.1-5.4) M/mm3 Hgb (12.0-16.0) gm/dl Hct (35-47) % MCV (78-100) fl MCH (26-32) pg MCHC (32-36) g/dl RDW (11.5-14.0) % Plt Count (150-450) K/mm3 MPV (7.5-11.0) fl Gran % (36.0-66.0) % Eos # (Auto) (0-0.5) Absolute Lymphs (auto) (1.0-4.6) Absolute Monos (auto) (0.0-1.3) Lymphocytes % (24.0-44.0) % Monocytes % (0.0-12.0) % Eosinophils % (0.00-5.0) % Basophils % (0.0-0.4) % Absolute Granulocytes (1.4-6.9) Basophils # (0-0.4) D-Dimer (215-500) ng/mL Sodium (137-145) mmol/L Potassium (3.5-5.1) mmol/L Chloride (98-107) mmol/L Carbon Dioxide (22-30) mmol/L Anion Gap (5-15) MEQ/L BUN (7-17) mg/dL Creatinine (0.52-1.04) mg/dL Estimated GFR ML/MIN Glucose (74-106) mg/dL Lactic Acid (0.4-2.0) Calcium (8.4-10.2) mg/dL Total Bilirubin (0.2-1.3) mg/dL AST (14-36) U/L ALT (0-35) U/L Alkaline Phosphatase (38-126) U/L Troponin I < 0.012 < 0.012 < 0.012 (0.000-0.034) ng/mL NT-Pro-B Natriuret Pep (0-900) pg/mL Serum Total Protein (6.3-8.2) g/dL Albumin (3.5-5.0) g/dL Procalcitonin (0.030-0.080) ng/mL SARS-CoV-2 (PCR) (NEGATIVE) Slides for Path Review 11/20/20 11/20/20 Range/Units 05:40 05:40 WBC 8.7 (4.0-10.5) K/mm3 RBC 4.80 (4.1-5.4) M/mm3 Hgb 14.2 (12.0-16.0) gm/dl Hct 44.2 (35-47) % MCV 92.1 (78-100) fl MCH 29.6 (26-32) pg MCHC 32.1 (32-36) g/dl RDW 13.7 (11.5-14.0) % Plt Count 298 (150-450) K/mm3 MPV 10.4 (7.5-11.0) fl Gran % 88.7 H (36.0-66.0) % Eos # (Auto) 0 (0-0.5) Absolute Lymphs (auto) 0.84 L (1.0-4.6) Absolute Monos (auto) 0.14 (0.0-1.3) Lymphocytes % 9.6 L (24.0-44.0) % Monocytes % 1.6 (0.0-12.0) % Eosinophils % 0.0 (0.00-5.0) % Basophils % 0.1 (0.0-0.4) % Absolute Granulocytes 7.73 H (1.4-6.9) Basophils # 0.01 (0-0.4) D-Dimer (215-500) ng/mL Sodium 130 L (137-145) mmol/L Potassium 5.0 (3.5-5.1) mmol/L Chloride 93 L (98-107) mmol/L Carbon Dioxide 30 (22-30) mmol/L Anion Gap 12.1 (5-15) MEQ/L BUN 13 (7-17) mg/dL Creatinine 0.65 (0.52-1.04) mg/dL Estimated GFR > 60.0 ML/MIN Glucose 146 H (74-106) mg/dL Lactic Acid (0.4-2.0) Calcium 9.5 (8.4-10.2) mg/dL Total Bilirubin 0.40 (0.2-1.3) mg/dL AST 26 (14-36) U/L ALT 16 (0-35) U/L Alkaline Phosphatase 80 (38-126) U/L Troponin I (0.000-0.034) ng/mL NT-Pro-B Natriuret Pep 512 (0-900) pg/mL Serum Total Protein 6.8 (6.3-8.2) g/dL Albumin 3.9 (3.5-5.0) g/dL Procalcitonin (0.030-0.080) ng/mL SARS-CoV-2 (PCR) (NEGATIVE) Slides for Path Review - Radiology Impressions Radiology Exams & Impressions: Radiology Procedures Category Date Time Status CHEST 1 VIEW (PORTABLE) Stat Exams 11/19/20 18:25 Completed - Other Procedures and Tests Respiratory Therapy 11/19/20 17:09 Respiratory Therapy Assessment DAILY 11/19/20 22:13 Oxygen Nasal Cannula 2 lpm Assessment/Plan (1) COPD exacerbation Current Visit: Yes Status: Acute Code(s): J44.1 - CHRONIC OBSTRUCTIVE PULMONARY DISEASE W (ACUTE) EXACERBATION (2) LLL pneumonia Current Visit: Yes Status: Acute Qualifiers: Pneumonia type: due to unspecified organism Qualified Code(s): J18.9 - Pneumonia, unspecified organism Assessment & Plan: rocephin and zithromax day #2. Solumedrol 80mg IV q8h. Pt wanted to go home today; I have explained that she needs further tx with IV abx, IV steroids, and O2 in order to recover. Will re-evaluate tomorrow. Code(s): J18.9 - PNEUMONIA, UNSPECIFIED ORGANISM (3) COPD exacerbation Current Visit: No Status: Acute Code(s): J44.1 - CHRONIC OBSTRUCTIVE PULMONARY DISEASE W (ACUTE) EXACERBATION
[2020-11-20] MEDS: Advair Hfa 115/21 Mcg Inhaler IH SCH (19:18)
[2020-11-20] MEDS ORDERED: ROCEPHIN 1 Gm-D5w 50 ml Bag** 1 G/50 ML IVPB IV SCH (22:00)
[2020-11-21] MEDS: DUONEB 0.5-3 MG/3 ml Neb IH SCH (07:39)
[2020-11-21] MEDS: Advair Hfa 115/21 Mcg Inhaler IH SCH (07:40)
[2020-11-21 08:00] VITALS: O2SAT 93
--- NOTE | 2020-11-21 08:37 | PCM.DS ---
Discharge Summary Date of Admission: 11/19/20 22:07 Admitting Physician: ANNA HOWELL Primary Care Provider: GREGORIO HERRERA Allergies Allergies No Known Drug Allergies Allergy (Verified 11/19/20 16:49) Hospital Summary - Hospital Course Hospital Course: Pt is 70 yo female pt of Earline Herrera with COPD who was admitted through ER with COPD exacerbation and PNA. L base infiltrate on CXR. She was put on IV steroids, IV rocephin and zithromax, and O2 per nasal cannula. Tolerating po well. She improved steadily and has not had to use O2 since yesterday. Would very much like to go home - will discharge on po cefdinir after her 3rd dose of IV zithromax this morning. - Vitals & Intake/Output Vital Signs: Vital Signs Temperature 98.3 F 11/21/20 07:59 Pulse Rate 66 11/21/20 07:59 Respiratory Rate 20 11/21/20 07:59 Blood Pressure 89/54 11/21/20 07:59 O2 Sat by Pulse Oximetry 93 L 11/21/20 07:59 Intake & Output: Intake & Output 11/18/20 11/19/20 11/20/20 11/21/20 11:59 11:59 11:59 11:59 Intake Total 1160 1390 Output Total 1000 1100 Balance 160 290 Weight 37.5 kg - Lab Result Diagrams: 11/20/20 05:40 11/20/20 05:40 - Radiology Exams Ordered Rad Exams-Entire Visit: Radiology Procedures Category Date Time Status CHEST 1 VIEW (PORTABLE) Stat Exams 11/19/20 18:25 Completed - Procedures and Test Procedures and Tests throughout Hospitalization: Therapy Orders & Screens 11/19/20 17:09 Respiratory Therapy Assessment DAILY Comment: 11/19/20 22:13 EKG REPEAT IN AM Comment: Oxygen Nasal Cannula 2 lpm Comment: Respiratory Therapy Consult ROUTINE Comment: Reason For Exam: 11/19/20 23:12 RT Screen per Nursing Assess ONCE Comment: Protocol Order Physician Instructions: Greater than 3 points order RT Admission Screen Reason For Exam: Triggered on Admission Diagnosis: Left pneumonia, COPD Exac, hypoxia Diagnosis: Left pneumonia, COPD Exac, hypoxia Pneumonia: Yes Home O2: No Asthma: No CHF: No Home CPAP/BIPAP: No Home Nebs/MDI: Yes Total Points: 8 Smoking Cessation Education ONCE Comment: Diagnosis: Left pneumonia, COPD Exac, hypoxia Smoking Status: Current every day smoker How long have you smoked: 30yrs Have you smoked in the past 12 months: Yes Approximately how many cigarettes per day: 1PPD Do you dip or chew tobacco: No Discharge Exam General Appearance: no apparent distress, alert, thin Neurologic Exam: oriented x 3, cooperative Eye Exam: eyes nml inspection Ears, Nose, Throat Exam: moist mucous membranes Neck Exam: normal inspection Respiratory Exam: diminished breath sounds (fair air exchange), wheezing (slight, scattered), No crackles/rales, No rhonchi Cardiovascular Exam: regular rate/rhythm, normal heart sounds, No murmur Gastrointestinal/Abdomen Exam: soft, normal bowel sounds, No tenderness, No distention, No mass, No guarding, No rebound Extremity Exam: normal inspection, No pedal edema, No swelling Final Diagnosis/Problem List - Final Discharge Diagnosis/Problem (1) COPD exacerbation Current Visit: Yes Status: Acute Assessment & Plan: Doing much better. Home on po steroids and cefdinir. F/u in 1 week. Code(s): J44.1 - CHRONIC OBSTRUCTIVE PULMONARY DISEASE W (ACUTE) EXACERBATION (2) LLL pneumonia Current Visit: Yes Status: Acute Code(s): J18.9 - PNEUMONIA, UNSPECIFIED ORGANISM - Discharge Disposition: Home, Self-Care Condition: Good Prescriptions: New Lactobacillus Acidophilus [Acidophilus Lactobacilli] 1 each PO TID #21 capsule Cefdinir 300 mg PO BID #14 capsule Prednisone 20 mg [Deltasone 20 mg] 20 mg PO DAILY #17 tablet Albuterol Sulfate [Ventolin] 5 mg IH QID PRN #1 ml PRN Reason: Shortness Of Breath Continue Mometasone/Formoterol [Dulera 200 Mcg-5 Mcg Inhaler] 2 puffs DAILY Instructions: Pneumonia, Adult (DC), Exacerbation of COPD Forms: Discharge Instructions
[2020-11-21] MEDS: Zithromax 500 MG/ 250 ML NaCl Premix 500 MG/250 ML IVPB IV SCH (09:01)
[2020-11-21] MEDS ORDERED: solu-MEDROL 125 MG IV SCH (10:00)
[2020-11-21 10:55] VITALS: BP 128/58; PULSE 72
== END 2020-11-21 12:10 | disposition home or self-care (01) ==
LOC: ED 16:37 → MED SURG 22:07
PROVIDERS: ADMIT Family Medicine; ATTEND Family Medicine
DX: J44.1 Chronic obstructive pulmonary disease with (acute) exacerbation (principal); J18.9 Pneumonia, unspecified organism; Z79.899 Other long term (current) drug therapy; Z20.828 Contact with and (suspected) exposure to other viral communicable diseases; F17.200 Nicotine dependence, unspecified, uncomplicated
CPT/HCPCS: 36000; 36415; 71045; 80053; 83605; 83880; 84145; 84484; 85025; 85379; 87040; 93005; 93041; 94640; 94760; 96365; 96374; 99285; 99291; G0378; U0003; J0456; J0696; J2930; A9270-GY

== ENCOUNTER 2023-03-16 06:35 | Emergency (ER) | payer MEDICARE ==
--- NOTE | 2023-03-16 06:53 | ERPHSYRPT ---
- History of Present Illness Time Seen by Provider: 03/16/23 06:45 Source: patient, family (daughter) Exam Limitations: no limitations Physician History: Pt states she is here for pain relief for her left sided sciatica she has had for the past month; denies fever, chest pain, shortness of air, abdominal pain. Pt states she has had a steriod injection and x-ray and is here only for pain relief. Allergies/Adverse Reactions: No Known Drug Allergies Allergy (Verified 03/16/23 06:42) Home Medications: Fluticasone/Salmeterol [Advair 100-50 Diskus] 1 each IH 03/16/23 [History] Methylprednisolone 4 mg [Medrol 4 mg] 4 mg PO UD 03/16/23 [History] Hx Tetanus, Diphtheria Vaccination/Date Given: No Hx Influenza Vaccination/Date Given: No Hx Pneumococcal Vaccination/Date Given: No Travel Risk - Vaccine Status Have you recieved a Covid-19 vaccination: Yes Recreational Counselor: GPal - Review of Systems Constitutional: No Fever Respiratory: No Dyspnea Cardiac: No Chest Pain Abdominal/Gastrointestinal: No Abdominal Pain, No Vomiting Musculoskeletal: Other (left sided sciatica ) Neurological: No Headache - Past Medical History Pertinent Past Medical History: Yes Neurological History: No Pertinent History ENT History: No Pertinent History Cardiac History: No Pertinent History Respiratory History: COPD Endocrine Medical History: No Pertinent History Musculoskeletal History: No Pertinent History GI Medical History: No Pertinent History History: No Pertinent History Psycho-Social History: No Pertinent History Female Reproductive Disorders: No Pertinent History Other Medical History: Needs shoulder on right shoulder - Past Surgical History Past Surgical History: No Neuro Surgical History: No Pertinent History Cardiac: No Pertinent History Respiratory: No Pertinent History Gastrointestinal: No Pertinent History Genitourinary: No Pertinent History Musculoskeletal: No Pertinent History Female Surgical History: No Pertinent History - Social History Smoking Status: Current every day smoker How long have you smoked: 30yrs Exposure to second hand smoke: Yes Drug Use: none Patient Lives Alone: No - Physical Exam General Appearance: alert Eyes, Ears, Nose, Throat Exam: TMs normal, pharynx normal Neck Exam: normal inspection Cardiovascular/Respiratory Exam: normal breath sounds, heart sounds normal Gastrointestinal/Abdominal Exam: soft (B.S. normal) Hips Exam: bilateral: normal range of motion Legs Exam: bilateral leg: normal range of motion Knees Exam: bilateral knee: normal range of motion Ankle Exam: bilateral ankle: normal range of motion Foot Exam: bilateral foot: normal range of motion Neuro/Tendon Exam: normal sensation, normal motor functions Mental Status Exam: alert, cooperative Skin Exam: warm, dry SpO2 Interpretation: normal SpO2: 98 O2 Delivery: Room Air - Progress Progress: unchanged Counseled pt/family regarding: diagnosis - Departure Departure Disposition: Home Clinical Impression: Left sided sciatica Condition: Stable Critical Care Time: No Referrals: GREGORIO PARISI NP [Primary Care Provider] - Follow up/PCP as directed Instructions: Sciatica Additional Instructions: Follow up with private doctor for possible MRI of lower back/pelvis.
[2023-03-16 07:01] VITALS: TEMP 97.8; O2SAT 98
[2023-03-16] MEDS ORDERED: TORAdol 30 mg Injection IM ONE (07:02)
[2023-03-16] MEDS ORDERED: NORCO 5/325 MG PO ONE (07:02)
[2023-03-16] MEDS ORDERED: TORAdol 30 mg Injection ONE (07:10)
[2023-03-16] MEDS ORDERED: NORCO 5/325 MG ONE (07:10)
[2023-03-16 07:14] VITALS: BP 157/88; PULSE 62; RESP 16
== END 2023-03-16 07:27 | disposition home or self-care (01) ==
LOC: ED 06:35
DX: M54.32 Sciatica, left side (principal); Z79.52 Long term (current) use of systemic steroids; Z79.899 Other long term (current) drug therapy; Z72.0 Tobacco use
CPT/HCPCS: 96372; 99283; J1885; A9270-GY

== ENCOUNTER 2024-06-08 16:07 | Observation (INO) | payer MEDICARE ==
--- NOTE | 2024-06-08 16:36 | ERPHSYRPT ---
- History of Present Illness Source: patient Exam Limitations: no limitations Patient Subjective Stated Complaint: PT HERE FOR CHILLS, AND MALAISE TODAY, DRINKING BUT NOT EATING WELL Triage Nursing Assessment: PT ARRIVED PER EMS, ALERT, APPEARS ILL, RESP EASY, CHEST CLEAR, OCC COUGH WHICH SHE STATES IS NORMAL FOR HER,NO EDEMA NOTED Timing/Duration: yesterday Cough Quality/Degree: mild, dry cough Possible Cause: no prior episodes Modifying Factors: Improves With: nothing Associated Symptoms: chills, cough, muscle aches, No fever, No chest pain /soreness, No earache, No facial pain, No headache, No nasal congestion, No nasal drainage, No shortness of breath Hx Tetanus, Diphtheria Vaccination/Date Given: No Hx Influenza Vaccination/Date Given: No Hx Pneumococcal Vaccination/Date Given: No Immunizations Up to Date: Yes <SYDNEE BATISTA - Last Filed: 06/08/24 18:47> <SAMI GRACE - Last Filed: 06/08/24 20:31> - History of Present Illness Time Seen by Provider: 06/08/24 16:32 Physician History: The patient presents with chills and an inability to get warm. He has been experiencing chills and an inability to get warm since last night, describing the sensation as being extremely cold to the point of being unable to perform daily activities. There is no significant cough, although he describes it as 'a cough, but it isn't.' He has no trouble breathing. He reports feeling weak with a 'touch of my head,' without further specification. He has not experienced vomiting or diarrhea, though he almost felt like he was going to vomit. There is no known exposure to anyone who is sick, and he has not had any fevers, although he suspects his temperature may be rising. (SYDNEE BATISTA) Allergies/Adverse Reactions: No Known Drug Allergies Allergy (Verified 06/08/24 16:13) Home Medications: Clopidogrel Bisulfate [Clopidogrel] 75 mg PO DAILY 06/08/24 [History] Fluticasone/Vilanterol [Breo Ellipta 100-25 Mcg Inhalr] 1 ea DAILY 06/08/24 [History] Lisinopril 10 mg [Zestril 10 MG] 10 mg PO DAILY 06/08/24 [History] Travel Risk - International Travel Have you traveled outside of the country in past 3 weeks: No - Emerging Infectious Disease Are you exhibiting symptoms associated with any current EIDs: No <SYDNEE BATISTA - Last Filed: 06/08/24 18:47> - Review of Systems All Other Systems: Reviewed and Negative <SYDNEE BATISTA - Last Filed: 06/08/24 18:47> - Past Medical History Pertinent Past Medical History: Yes Neurological History: No Pertinent History ENT History: No Pertinent History Cardiac History: Hypertension Respiratory History: COPD Endocrine Medical History: No Pertinent History Musculoskeletal History: Osteoarthritis GI Medical History: No Pertinent History History: No Pertinent History Psycho-Social History: No Pertinent History Female Reproductive Disorders: No Pertinent History Other Medical History: RIGHT ROTATOR CUFF TEAR BUT DID NOT WANT SURGERY TO REPAIR - Past Surgical History Past Surgical History: No Neuro Surgical History: No Pertinent History Cardiac: No Pertinent History Respiratory: No Pertinent History Gastrointestinal: No Pertinent History Genitourinary: No Pertinent History Musculoskeletal: No Pertinent History Female Surgical History: No Pertinent History - Social History Smoking Status: Current every day smoker How long have you smoked: 30yrs Exposure to second hand smoke: Yes Drug Use: none Patient Lives Alone: No - Social Determinants of Health Will the patient participate in the screening: Declined to provide <SYDNEE BATISTA - Last Filed: 06/08/24 18:47> - Physical Exam General Appearance: no apparent distress, thin Eye Exam: eyes nml inspection Ears, Nose, Throat Exam: normal ENT inspection Neck Exam: normal inspection, supple, full range of motion Respiratory Exam: normal breath sounds, lungs clear, airway intact, No respiratory distress Cardiovascular Exam: regular rate/rhythm, capillary refill <2 sec, No edema Gastrointestinal/Abdomen Exam: soft, No tenderness, No distention, No mass, No guarding, No rebound Extremity Exam: normal inspection, No swelling, No tenderness Neurologic Exam: alert, oriented x 3, cooperative Skin Exam: normal color, warm, dry, No rash SpO2 Interpretation: borderline oxygenation SpO2: 94 O2 Delivery: Room Air <SYDNEE BATISTA - Last Filed: 06/08/24 18:47> - Nursing Vital Signs Nursing Vital Signs: Initial Vital Signs Blood Pressure 140/66 06/08/24 16:12 Pain Scale Pain Intensity 0 - Course Nursing assessment & vital signs reviewed: Yes <SYDNEE BATISTA - Last Filed: 06/08/24 18:47> Ordered Tests: Active Orders 24 hr Category Date Time Status IV Insertion STAT Care 06/08/24 16:30 Active CHEST 1 VIEW (PORTABLE) Stat Exams 06/08/24 16:56 Completed CBC W DIFF Stat Lab 06/08/24 16:50 Completed CMP Stat Lab 06/08/24 16:50 Completed CREATININE,URINE RANDOM Stat Lab 06/08/24 18:17 Completed Calcium Stat Lab 06/08/24 19:00 Received MAGNESIUM Stat Lab 06/08/24 19:00 Received PHOSPHOROUS Stat Lab 06/08/24 19:00 Received PROCALCITONIN Stat Lab 06/08/24 16:50 Completed PROTEIN,URINE RANDOM Stat Lab 06/08/24 18:17 Completed SODIUM Stat Lab 06/08/24 19:05 Completed Sodium, Urine Stat Lab 06/08/24 18:17 Completed TSH, 3RD Generation Stat Lab 06/08/24 19:00 Received UA W/RFX UR CULTURE Stat Lab 06/08/24 18:16 Completed Respiratory Therapy Assessment DAILY RT 06/08/24 16:46 Completed Medication Summary Discontinued Medications Generic Name Dose Route Start Last Admin Trade Name Freq PRN Reason Stop Dose Admin Albuterol/Ipratropium 3 ml 06/08/24 16:31 06/08/24 16:44 Ipratropium/Albuterol Sulfate 3 Ml Ampul.Neb IH 06/08/24 16:32 3 ml STAT ONE Administration Albuterol/Ipratropium Confirm 06/08/24 16:42 Ipratropium/Albuterol Sulfate 3 Ml Ampul.Neb Administered 06/08/24 16:43 Dose 3 ml IH .STK-MED ONE Sodium Chloride 1,000 mls @ 999 mls/hr 06/08/24 16:30 06/08/24 18:01 Sodium Chloride 0.9% 1000 Ml IV 06/08/24 17:30 Infused .Q1H1M STA Infusion Sodium Chloride Confirm 06/08/24 16:52 Sodium Chloride 0.9% 1000 Ml Administered 06/08/24 16:53 Dose 1,000 mls @ ud .ROUTE .STK-MED ONE Lab/Rad Data: Laboratory Result Diagrams 06/08/24 16:50 06/08/24 19:05 Laboratory Results 06/08/24 06/08/24 06/08/24 Range/Units 19:05 18:17 18:16 WBC (3.98-10.04) x10^3/uL RBC (3.93-5.22) x10^6/uL Hgb (11.2-15.7) g/dL Hct (34.1-44.9) % MCV (79.4-94.8) fL MCH (25.6-32.2) pg MCHC (32.2-35.5) g/dL RDW (11.7-14.4) % Plt Count (182-369) x10^3/uL MPV (9.4-12.3) fL Gran % (34.0-71.1) % Immature Gran % (Auto) (0.001-0.429) % Nucleat RBC Rel Count (0.00-0.2) % Eos # (Auto) (0.04-0.36) x10^3/uL Immature Gran # (Auto) (0.001-0.031) x10^3u/L Absolute Lymphs (auto) (1.18-3.74) x10^3/uL Absolute Monos (auto) (0.24-0.86) x10^3/uL Absolute Nucleated RBC (0.00-0.012) x10^3u/L Lymphocytes % (19.3-51.7) % Monocytes % (4.7-12.5) % Eosinophils % (0.7-5.8) % Basophils % (0.1-1.2) % Absolute Granulocytes (1.56-6.13) x10^3/uL Basophils # (0.01-0.08) x10^3/uL Sodium 126 L (135-145) mmol/L Potassium (3.5-5.1) mmol/L Chloride (98-107) mmol/L Carbon Dioxide (22-30) mmol/L Anion Gap (5-15) MEQ/L BUN (7-17) mg/dL Creatinine (0.52-1.04) mg/dL Estimated GFR ML/MIN Glucose (74-106) mg/dL Calcium (8.4-10.2) mg/dL Total Bilirubin (0.2-1.3) mg/dL AST (14-36) U/L ALT (0-35) U/L Alkaline Phosphatase (38-126) U/L Serum Total Protein (6.3-8.2) g/dL Albumin (3.5-5.0) g/dL Procalcitonin (0.030-0.080) ng/mL Urine Color Yellow (Yellow) Urine Appearance Cloudy A (Clear) Urine pH 8.0 (4.6-8.0) Ur Specific [place] 1.010 (1.005-1.030) Urine Protein Negative (Negative) Urine Glucose (UA) Negative (Negative) mg/dL Urine Ketones Negative (Negative) Urine Blood Small A (Negative) Urine Nitrite Negative (Negative) Urine Bilirubin Negative (Negative) Urine Urobilinogen 0.2 (0.2) mg/dL Ur Leukocyte Esterase Negative (Negative) U Hyaline Cast (Auto) NONE SEEN (0-2) /LPF Urine Microscopic RBC 11-20 A (0-5) /HPF Urine Microscopic WBC 0-2 (0-5) /HPF Ur Epithelial Cells None Seen (None Seen) /HPF Urine Bacteria None Seen (None Seen) /HPF Urine Culture Reflexed NO (NO) Ur Random Creatinine 35.8 MG/DL U Random Total Protein 14 H (0-12) mg/dL Urine Sodium 99 H (30-90) mmol/L Influenza Type A Ag (NEGATIVE) Influenza Type B Ag (NEGATIVE) RSV (PCR) (NEGATIVE) SARS-CoV-2 (PCR) (NEGATIVE) 06/08/24 06/08/24 06/08/24 Range/Units 16:50 16:50 16:50 WBC (3.98-10.04) x10^3/uL RBC (3.93-5.22) x10^6/uL Hgb (11.2-15.7) g/dL Hct (34.1-44.9) % MCV (79.4-94.8) fL MCH (25.6-32.2) pg MCHC (32.2-35.5) g/dL RDW (11.7-14.4) % Plt Count (182-369) x10^3/uL MPV (9.4-12.3) fL Gran % (34.0-71.1) % Immature Gran % (Auto) (0.001-0.429) % Nucleat RBC Rel Count (0.00-0.2) % Eos # (Auto) (0.04-0.36) x10^3/uL Immature Gran # (Auto) (0.001-0.031) x10^3u/L Absolute Lymphs (auto) (1.18-3.74) x10^3/uL Absolute Monos (auto) (0.24-0.86) x10^3/uL Absolute Nucleated RBC (0.00-0.012) x10^3u/L Lymphocytes % (19.3-51.7) % Monocytes % (4.7-12.5) % Eosinophils % (0.7-5.8) % Basophils % (0.1-1.2) % Absolute Granulocytes (1.56-6.13) x10^3/uL Basophils # (0.01-0.08) x10^3/uL Sodium 125 L (135-145) mmol/L Potassium 4.1 (3.5-5.1) mmol/L Chloride 96 L (98-107) mmol/L Carbon Dioxide 23 (22-30) mmol/L Anion Gap 9.8 (5-15) MEQ/L BUN 12 (7-17) mg/dL Creatinine 0.69 (0.52-1.04) mg/dL Estimated GFR 89.9 ML/MIN Glucose 90 (74-106) mg/dL Calcium 8.5 (8.4-10.2) mg/dL Total Bilirubin 0.40 (0.2-1.3) mg/dL AST 33 (14-36) U/L ALT 17 (0-35) U/L Alkaline Phosphatase 63 (38-126) U/L Serum Total Protein 6.3 (6.3-8.2) g/dL Albumin 3.8 (3.5-5.0) g/dL Procalcitonin 0.053 (0.030-0.080) ng/mL Urine Color (Yellow) Urine Appearance (Clear) Urine pH (4.6-8.0) Ur Specific [place] (1.005-1.030) Urine Protein (Negative) Urine Glucose (UA) (Negative) mg/dL Urine Ketones (Negative) Urine Blood (Negative) Urine Nitrite (Negative) Urine Bilirubin (Negative) Urine Urobilinogen (0.2) mg/dL Ur Leukocyte Esterase (Negative) U Hyaline Cast (Auto) (0-2) /LPF Urine Microscopic RBC (0-5) /HPF Urine Microscopic WBC (0-5) /HPF Ur Epithelial Cells (None Seen) /HPF Urine Bacteria (None Seen) /HPF Urine Culture Reflexed (NO) Ur Random Creatinine MG/DL U Random Total Protein (0-12) mg/dL Urine Sodium (30-90) mmol/L Influenza Type A Ag NEGATIVE (NEGATIVE) Influenza Type B Ag NEGATIVE (NEGATIVE) RSV (PCR) NEGATIVE (NEGATIVE) SARS-CoV-2 (PCR) NEGATIVE (NEGATIVE) 06/08/24 Range/Units 16:50 WBC 7.0 (3.98-10.04) x10^3/uL RBC 4.22 (3.93-5.22) x10^6/uL Hgb 13.0 (11.2-15.7) g/dL Hct 37.3 (34.1-44.9) % MCV 88.4 (79.4-94.8) fL MCH 30.8 (25.6-32.2) pg MCHC 34.9 (32.2-35.5) g/dL RDW 13.8 (11.7-14.4) % Plt Count 198 (182-369) x10^3/uL MPV 9.7 (9.4-12.3) fL Gran % 69.8 (34.0-71.1) % Immature Gran % (Auto) 0.3 (0.001-0.429) % Nucleat RBC Rel Count 0.0 (0.00-0.2) % Eos # (Auto) 0.03 L (0.04-0.36) x10^3/uL Immature Gran # (Auto) 0.02 (0.001-0.031) x10^3u/L Absolute Lymphs (auto) 0.97 L (1.18-3.74) x10^3/uL Absolute Monos (auto) 1.06 H (0.24-0.86) x10^3/uL Absolute Nucleated RBC 0.00 (0.00-0.012) x10^3u/L Lymphocytes % 13.8 L (19.3-51.7) % Monocytes % 15.1 H (4.7-12.5) % Eosinophils % 0.4 L (0.7-5.8) % Basophils % 0.6 (0.1-1.2) % Absolute Granulocytes 4.90 (1.56-6.13) x10^3/uL Basophils # 0.04 (0.01-0.08) x10^3/uL Sodium (135-145) mmol/L Potassium (3.5-5.1) mmol/L Chloride (98-107) mmol/L Carbon Dioxide (22-30) mmol/L Anion Gap (5-15) MEQ/L BUN (7-17) mg/dL Creatinine (0.52-1.04) mg/dL Estimated GFR ML/MIN Glucose (74-106) mg/dL Calcium (8.4-10.2) mg/dL Total Bilirubin (0.2-1.3) mg/dL AST (14-36) U/L ALT (0-35) U/L Alkaline Phosphatase (38-126) U/L Serum Total Protein (6.3-8.2) g/dL Albumin (3.5-5.0) g/dL Procalcitonin (0.030-0.080) ng/mL Urine Color (Yellow) Urine Appearance (Clear) Urine pH (4.6-8.0) Ur Specific [place] (1.005-1.030) Urine Protein (Negative) Urine Glucose (UA) (Negative) mg/dL Urine Ketones (Negative) Urine Blood (Negative) Urine Nitrite (Negative) Urine Bilirubin (Negative) Urine Urobilinogen (0.2) mg/dL Ur Leukocyte Esterase (Negative) U Hyaline Cast (Auto) (0-2) /LPF Urine Microscopic RBC (0-5) /HPF Urine Microscopic WBC (0-5) /HPF Ur Epithelial Cells (None Seen) /HPF Urine Bacteria (None Seen) /HPF Urine Culture Reflexed (NO) Ur Random Creatinine MG/DL U Random Total Protein (0-12) mg/dL Urine Sodium (30-90) mmol/L Influenza Type A Ag (NEGATIVE) Influenza Type B Ag (NEGATIVE) RSV (PCR) (NEGATIVE) SARS-CoV-2 (PCR) (NEGATIVE) - Progress Progress: improved Air Movement: good Blood Culture(s) Obtained: No Antibiotics given: No Counseled pt/family regarding: lab results, diagnosis, need for follow-up, rad results <SYDNEE BATISTA - Last Filed: 06/08/24 18:47> <SAMI GRACE - Last Filed: 06/08/24 20:31> - Progress Progress Note: 06/08/24 16:35 Chills and possible viral infection Presents with chills and sensation of being unable to get warm since last night. No significant cough, dyspnea, emesis, or diarrhea. No known exposure to illness. Afebrile but likely developing fever. Slightly decreased oxygen saturation. Differential includes Influenza A, COVID-19, and RSV, considering current Flu A prevalence in the community. - Order COVID-19, Influenza, and RSV tests - Order chest X-ray to evaluate lung condition - CBC, CMP, procal, UA - 1L NS bolus 06/08/24 18:45 Na 125, will repeat now since NS bolus completed. COVID, Flu, RSV neg CBC unremarkable Handoff to Dr. Grace at 1900 with repeat Na pending, patient would prefer not to stay. (SYDNEE BATISTA) Patient was turned over to me at shift change. We are waiting on a repeat sodium. It only went up 1 point from 125 .I ordered a few more test including some electrolytes and so forth.I discussed the patient with the hospitalist. He agreed to accept her. Her recommended rate for sodium deficit correction was 350/h we will start that 06/08/24 20:25 (SAMI GRACE) Medical Desision Making - Diagnostic Testing Diagnostic test were ordered, analyzed, and reviewed by me: Yes Radiological Interpretation: Interpreted by me - Risk of complications The pt has a mod risk of morbidity or mortality based on: Need for prescription drug management <SYDNEE BATISTA - Last Filed: 06/08/24 18:47> - Independent Historian Additional History obtained from: Child - Discussion of managment Care discussed with:: hospitalist Reviewed:: Test results, Need for additional workup Agreed on:: Treatment plan Will see patient: in hospital <SAMI GRACE - Last Filed: 06/08/24 20:31> - Departure Critical Care Time: No <SYDNEE BATISTA - Last Filed: 06/08/24 18:47> - Departure Departure Disposition: In-patient Admission <SAMI GRACE. - Last Filed: 06/08/24 20:31> - Departure Clinical Impression: Hyponatremia, COPD (chronic obstructive pulmonary disease), Hypoxia, Chills Condition: Good Referrals: GREGORIO PARISI, POLICE CHIEF [Primary Care Provider] - Follow up/PCP as directed Instructions: Chronic Obstructive Pulmonary Disease, Hyponatremia
[2024-06-08] MEDS ORDERED: DUONEB 0.5-3 MG/3 ml Neb IH ONE (16:42)
[2024-06-08] MEDS: DUONEB 0.5-3 MG/3 ml Neb IH ONE (16:44)
[2024-06-08] MEDS ORDERED: Sodium Chloride 0.9% 1000 ML 1,000 ML ONE (16:52)
[2024-06-08 16:53] LABS: BASOPHIL % 0.6 % (0.1-1.2); Basophil (Absolute #) 0.04 x10^3/uL (0.01-0.08); Eosinophil % 0.4 % (0.7-5.8); Eosinophil (Absolute #) 0.03 x10^3/uL (0.04-0.36); Hematocrit 37.3 % (34.1-44.9); IMMATURE GRAN # 0.02 x10^3u/L (0.001-0.031); IMMATURE GRAN % 0.3 % (0.001-0.429); Lymphocyte (Absolute #) 0.97 x10^3/uL (1.18-3.74); Lymphocytes % 13.8 % (19.3-51.7); Mean Cell Volume 88.4 fL (79.4-94.8); Mean Corpuscular Hemoglobin 30.8 pg (25.6-32.2); Mean Corpuscular Hgb Concent. 34.9 g/dL (32.2-35.5); Mean Platelet Volume 9.7 fL (9.4-12.3); Monocyte (Absolute #) 1.06 x10^3/uL (0.24-0.86); Monocytes % 15.1 % (4.7-12.5); Neutrophil % 69.8 % (34.0-71.1); Platelet Count 198 x10^3/uL (182-369); Red Blood Count 4.22 x10^6/uL (3.93-5.22); Red Cell Distribution Width 13.8 % (11.7-14.4)
[2024-06-08] MEDS: Sodium Chloride 0.9% 1000 ML 1,000 ML IV STA (16:57)
[2024-06-08 17:10] LABS: ALBUMIN 3.8 g/dL (3.5-5.0); ANION GAP 9.8 MEQ/L (5-15); BILIRUBIN,TOTAL 0.4 mg/dL (0.2-1.3); Calcium 8.5 mg/dL (8.4-10.2); Creatinine 1 0.69 mg/dL (0.52-1.04); EST GLOMERULAR FILTRATION RATE 89.9 ML/MIN; Potassium 4.1 mmol/L (3.5-5.1); Total Protein 6.3 g/dL (6.3-8.2)
[2024-06-08 17:29] LABS: INFLUENZA A NEGATIVE (NEGATIVE); INFLUENZA B NEGATIVE (NEGATIVE); RESPIRATORY SYNCTIAL VIRUS NEGATIVE (NEGATIVE); SARS-CoV-2 Xpert Express NEGATIVE (NEGATIVE)
[2024-06-08 18:34] LABS: Appearance Cloudy (Clear); Bacteria None Seen /HPF (None Seen); Bilirubin Negative (Negative); Blood Small (Negative); Epithelial Cells None Seen /HPF (None Seen); Glucose, Urine Negative (Negative); Hyaline Casts NONE SEEN /LPF (0-2); Ketones Negative (Negative); Leukocyte Esterase Negative (Negative); Nitrite Negative (Negative); Protein,Urine Dip Negative (Negative); Urobilinogen 0.2 mg/dL (0.2); WBC 0-2 /HPF (0-5)
[2024-06-08 18:37] LABS: CREATININE,URINE RANDOM 35.8 MG/DL
--- NOTE | 2024-06-08 20:12 | XRAY ---
Indication: Hypoxia. Comparison: November 19, 2020 Portable chest again hyperinflated with incidental tiny left midlung calcified granuloma. New left infrahilar discoid atelectasis/scarring. No focal infiltrate, consolidation, or large effusion. Heart not enlarged. Bony thorax intact again with osteopenia. Impression: Nonacute hyperinflated chest with chronic features.
[2024-06-08 20:26] LABS: Calcium 7.9 mg/dL (8.4-10.2); MAGNESIUM 1.5 mg/dL (1.6-2.3); PHOSPHOROUS 3.6 mg/dL (2.5-4.5)
[2024-06-08] MEDS: Sodium Chloride 0.9% 1000 ML 1,000 ML IV SCH (20:43)
[2024-06-08] MEDS: D50W 50 ml Abboject IV ONE (21:10)
--- NOTE | 2024-06-08 23:34 | PCM.HP ---
History of Present Illness - Chief Complaint Chief Complaint: hyponatremia/WEAKNESS History of Present Illness: is a 74 year old female. 74 year old female who presents with chills, found to have a Na of 125. Denies fevers, cough, SOB, nausea, vomiting, diarrhea. COVID/Flu/RSV negative in the ED. Urine sodium was 99. Urine Cr 36. This could be due to hypoit in setting of stopping prednisone therapy, which she was on pred 5 mg daily on/off for a long time, most recently has been on it for the past month and abruptly stopped about 1-2 days ago. She reports being prescribed pred for her chronic cough. - Review of Systems Constitutional: No Fever, No Chills Eyes: No Symptoms Ears, Nose, & Throat: No Symptoms Respiratory: No Cough, No Short Of Breath Cardiac: No Chest Pain, No Edema, No Syncope Abdominal/Gastrointestinal: No Abdominal Pain, No Nausea, No Vomiting, No Diarrhea Genitourinary Symptoms: No Dysuria Musculoskeletal: No Back Pain, No Neck Pain Skin: No Rash Neurological: No Dizziness, No Focal Weakness, No Sensory Changes Psychological: No Symptoms Endocrine: No Symptoms Hematologic/Lymphatic: No Symptoms Immunological/Allergic: No Symptoms Medications & Allergies Home Medications: Home Medication List Clopidogrel Bisulfate [Clopidogrel] 75 mg PO DAILY 06/08/24 [History Confirmed 06/08/24] Fluticasone/Vilanterol [Breo Ellipta 100-25 Mcg Inhalr] 1 ea DAILY 06/08/24 [History Confirmed 06/08/24] Lisinopril 10 mg [Zestril 10 MG] 10 mg PO DAILY 06/08/24 [History Confirmed 06/08/24] Allergies/Adverse Reactions: Allergies Allergy/AdvReac Type Severity Reaction Status Date / Time No Known Drug Allergies Allergy Verified 06/08/24 16:13 - Past Medical History Past Medical History: Yes Neurological History: No Pertinent History ENT History: No Pertinent History Cardiac History: Hypertension Respiratory History: COPD Endocrine Medical History: No Pertinent History Musculoskelatal History: Osteoarthritis GI Medical History: No Pertinent History History: No Pertinent History Pyscho-Social History: No Pertinent History Reproductive Disorders: No Pertinent History Comment: RIGHT ROTATOR CUFF TEAR BUT DID NOT WANT SURGERY TO REPAIR-2020 - Past Surgical History Past Surgical History: No Neuro Surgical History: No Pertinent History Cardiac History: No Pertinent History Respiratory Surgery: No Pertinent History GI Surgical History: No Pertinent History Genitourinary Surgical Hx: No Pertinent History Musculskeletal Surgical Hx: No Pertinent History Female Surgical History: No Pertinent History - Social History Smoking Status: Current every day smoker How long have you smoked: 56 Exposure to second hand smoke: No Alcohol: None Drug Use: none - Social Determinants of Health Will the patient participate in the screening: Declined to provide - Physical Exam Vital Signs: Vital Signs - 24 hr Temp Pulse Resp BP BP Pulse Ox 06/08/24 22:53 96.2 F 87 18 102/50 94 L 06/08/24 22:00 79 18 118/64 92 L 06/08/24 21:30 108/59 93 L 06/08/24 21:00 84 18 106/53 91 L 06/08/24 20:30 109/57 91 L 06/08/24 20:00 116/61 93 L 06/08/24 19:30 125/69 92 L 06/08/24 19:00 114/60 90 L 06/08/24 18:47 94 L 06/08/24 18:30 121/62 91 L 06/08/24 18:00 97 H 18 110/60 94 L 06/08/24 17:30 80 18 150/80 95 06/08/24 17:00 18 144/81 95 06/08/24 16:46 74 16 93 L 06/08/24 16:30 84 18 132/61 96 06/08/24 16:16 99.6 F 86 18 140/66 94 L 06/08/24 16:12 140/66 General Appearance: no apparent distress, alert Neurologic Exam: alert, oriented x 3, cooperative, normal mood/affect, nml cerebellar function, nml station & gait, sensation nml, No motor deficits Eye Exam: PERRL/EOMI, eyes nml inspection Ears, Nose, Throat Exam: normal ENT inspection, TMs normal, pharynx normal, moist mucous membranes Neck Exam: normal inspection, non-tender, supple, full range of motion Respiratory Exam: normal breath sounds, lungs clear, No respiratory distress Cardiovascular Exam: regular rate/rhythm, normal heart sounds, normal peripheral pulses Gastrointestinal/Abdomen Exam: soft, normal bowel sounds, No tenderness, No mass Back Exam: normal inspection, normal range of motion, No CVA tenderness, No vertebral tenderness Extremity Exam: normal inspection, normal range of motion, pelvis stable Skin Exam: normal color, warm, dry, No rash Lymphatic Exam: No adenopathy Results - Labs Lab/Micro Results: Lab Results-Last 24 Hours 06/08/24 06/08/24 06/08/24 Range/Units 16:50 16:50 16:50 WBC 7.0 (3.98-10.04) x10^3/uL RBC 4.22 (3.93-5.22) x10^6/uL Hgb 13.0 (11.2-15.7) g/dL Hct 37.3 (34.1-44.9) % MCV 88.4 (79.4-94.8) fL MCH 30.8 (25.6-32.2) pg MCHC 34.9 (32.2-35.5) g/dL RDW 13.8 (11.7-14.4) % Plt Count 198 (182-369) x10^3/uL MPV 9.7 (9.4-12.3) fL Gran % 69.8 (34.0-71.1) % Immature Gran % (Auto) 0.3 (0.001-0.429) % Nucleat RBC Rel Count 0.0 (0.00-0.2) % Eos # (Auto) 0.03 L (0.04-0.36) x10^3/uL Immature Gran # (Auto) 0.02 (0.001-0.031) x10^3u/L Absolute Lymphs (auto) 0.97 L (1.18-3.74) x10^3/uL Absolute Monos (auto) 1.06 H (0.24-0.86) x10^3/uL Absolute Nucleated RBC 0.00 (0.00-0.012) x10^3u/L Lymphocytes % 13.8 L (19.3-51.7) % Monocytes % 15.1 H (4.7-12.5) % Eosinophils % 0.4 L (0.7-5.8) % Basophils % 0.6 (0.1-1.2) % Absolute Granulocytes 4.90 (1.56-6.13) x10^3/uL Basophils # 0.04 (0.01-0.08) x10^3/uL Sodium 125 L (135-145) mmol/L Potassium 4.1 (3.5-5.1) mmol/L Chloride 96 L (98-107) mmol/L Carbon Dioxide 23 (22-30) mmol/L Anion Gap 9.8 (5-15) MEQ/L BUN 12 (7-17) mg/dL Creatinine 0.69 (0.52-1.04) mg/dL Estimated GFR 89.9 ML/MIN Glucose 90 (74-106) mg/dL POC Glucometer (74 to 106) mg/dL Calcium 8.5 (8.4-10.2) mg/dL Phosphorus (2.5-4.5) mg/dL Magnesium (1.6-2.3) mg/dL Total Bilirubin 0.40 (0.2-1.3) mg/dL AST 33 (14-36) U/L ALT 17 (0-35) U/L Alkaline Phosphatase 63 (38-126) U/L Serum Total Protein 6.3 (6.3-8.2) g/dL Albumin 3.8 (3.5-5.0) g/dL Procalcitonin 0.053 (0.030-0.080) ng/mL TSH 3rd Generation (0.470-4.680) mIU/L Urine Color (Yellow) Urine Appearance (Clear) Urine pH (4.6-8.0) Ur Specific [place] (1.005-1.030) Urine Protein (Negative) Urine Glucose (UA) (Negative) mg/dL Urine Ketones (Negative) Urine Blood (Negative) Urine Nitrite (Negative) Urine Bilirubin (Negative) Urine Urobilinogen (0.2) mg/dL Ur Leukocyte Esterase (Negative) U Hyaline Cast (Auto) (0-2) /LPF Urine Microscopic RBC (0-5) /HPF Urine Microscopic WBC (0-5) /HPF Ur Epithelial Cells (None Seen) /HPF Urine Bacteria (None Seen) /HPF Urine Culture Reflexed (NO) Ur Random Creatinine MG/DL U Random Total Protein (0-12) mg/dL Urine Sodium (30-90) mmol/L Influenza Type A Ag (NEGATIVE) Influenza Type B Ag (NEGATIVE) RSV (PCR) (NEGATIVE) SARS-CoV-2 (PCR) (NEGATIVE) 06/08/24 06/08/24 06/08/24 Range/Units 16:50 18:16 18:17 WBC (3.98-10.04) x10^3/uL RBC (3.93-5.22) x10^6/uL Hgb (11.2-15.7) g/dL Hct (34.1-44.9) % MCV (79.4-94.8) fL MCH (25.6-32.2) pg MCHC (32.2-35.5) g/dL RDW (11.7-14.4) % Plt Count (182-369) x10^3/uL MPV (9.4-12.3) fL Gran % (34.0-71.1) % Immature Gran % (Auto) (0.001-0.429) % Nucleat RBC Rel Count (0.00-0.2) % Eos # (Auto) (0.04-0.36) x10^3/uL Immature Gran # (Auto) (0.001-0.031) x10^3u/L Absolute Lymphs (auto) (1.18-3.74) x10^3/uL Absolute Monos (auto) (0.24-0.86) x10^3/uL Absolute Nucleated RBC (0.00-0.012) x10^3u/L Lymphocytes % (19.3-51.7) % Monocytes % (4.7-12.5) % Eosinophils % (0.7-5.8) % Basophils % (0.1-1.2) % Absolute Granulocytes (1.56-6.13) x10^3/uL Basophils # (0.01-0.08) x10^3/uL Sodium (135-145) mmol/L Potassium (3.5-5.1) mmol/L Chloride (98-107) mmol/L Carbon Dioxide (22-30) mmol/L Anion Gap (5-15) MEQ/L BUN (7-17) mg/dL Creatinine (0.52-1.04) mg/dL Estimated GFR ML/MIN Glucose (74-106) mg/dL POC Glucometer (74 to 106) mg/dL Calcium (8.4-10.2) mg/dL Phosphorus (2.5-4.5) mg/dL Magnesium (1.6-2.3) mg/dL Total Bilirubin (0.2-1.3) mg/dL AST (14-36) U/L ALT (0-35) U/L Alkaline Phosphatase (38-126) U/L Serum Total Protein (6.3-8.2) g/dL Albumin (3.5-5.0) g/dL Procalcitonin (0.030-0.080) ng/mL TSH 3rd Generation (0.470-4.680) mIU/L Urine Color Yellow (Yellow) Urine Appearance Cloudy A (Clear) Urine pH 8.0 (4.6-8.0) Ur Specific [place] 1.010 (1.005-1.030) Urine Protein Negative (Negative) Urine Glucose (UA) Negative (Negative) mg/dL Urine Ketones Negative (Negative) Urine Blood Small A (Negative) Urine Nitrite Negative (Negative) Urine Bilirubin Negative (Negative) Urine Urobilinogen 0.2 (0.2) mg/dL Ur Leukocyte Esterase Negative (Negative) U Hyaline Cast (Auto) NONE SEEN (0-2) /LPF Urine Microscopic RBC 11-20 A (0-5) /HPF Urine Microscopic WBC 0-2 (0-5) /HPF Ur Epithelial Cells None Seen (None Seen) /HPF Urine Bacteria None Seen (None Seen) /HPF Urine Culture Reflexed NO (NO) Ur Random Creatinine 35.8 MG/DL U Random Total Protein 14 H (0-12) mg/dL Urine Sodium 99 H (30-90) mmol/L Influenza Type A Ag NEGATIVE (NEGATIVE) Influenza Type B Ag NEGATIVE (NEGATIVE) RSV (PCR) NEGATIVE (NEGATIVE) SARS-CoV-2 (PCR) NEGATIVE (NEGATIVE) 06/08/24 06/08/24 06/08/24 Range/Units 19:00 19:00 19:05 WBC (3.98-10.04) x10^3/uL RBC (3.93-5.22) x10^6/uL Hgb (11.2-15.7) g/dL Hct (34.1-44.9) % MCV (79.4-94.8) fL MCH (25.6-32.2) pg MCHC (32.2-35.5) g/dL RDW (11.7-14.4) % Plt Count (182-369) x10^3/uL MPV (9.4-12.3) fL Gran % (34.0-71.1) % Immature Gran % (Auto) (0.001-0.429) % Nucleat RBC Rel Count (0.00-0.2) % Eos # (Auto) (0.04-0.36) x10^3/uL Immature Gran # (Auto) (0.001-0.031) x10^3u/L Absolute Lymphs (auto) (1.18-3.74) x10^3/uL Absolute Monos (auto) (0.24-0.86) x10^3/uL Absolute Nucleated RBC (0.00-0.012) x10^3u/L Lymphocytes % (19.3-51.7) % Monocytes % (4.7-12.5) % Eosinophils % (0.7-5.8) % Basophils % (0.1-1.2) % Absolute Granulocytes (1.56-6.13) x10^3/uL Basophils # (0.01-0.08) x10^3/uL Sodium 126 L (135-145) mmol/L Potassium (3.5-5.1) mmol/L Chloride (98-107) mmol/L Carbon Dioxide (22-30) mmol/L Anion Gap (5-15) MEQ/L BUN (7-17) mg/dL Creatinine (0.52-1.04) mg/dL Estimated GFR ML/MIN Glucose (74-106) mg/dL POC Glucometer (74 to 106) mg/dL Calcium 7.9 L (8.4-10.2) mg/dL Phosphorus 3.6 (2.5-4.5) mg/dL Magnesium 1.5 L (1.6-2.3) mg/dL Total Bilirubin (0.2-1.3) mg/dL AST (14-36) U/L ALT (0-35) U/L Alkaline Phosphatase (38-126) U/L Serum Total Protein (6.3-8.2) g/dL Albumin (3.5-5.0) g/dL Procalcitonin (0.030-0.080) ng/mL TSH 3rd Generation 1.447 (0.470-4.680) mIU/L Urine Color (Yellow) Urine Appearance (Clear) Urine pH (4.6-8.0) Ur Specific [place] (1.005-1.030) Urine Protein (Negative) Urine Glucose (UA) (Negative) mg/dL Urine Ketones (Negative) Urine Blood (Negative) Urine Nitrite (Negative) Urine Bilirubin (Negative) Urine Urobilinogen (0.2) mg/dL Ur Leukocyte Esterase (Negative) U Hyaline Cast (Auto) (0-2) /LPF Urine Microscopic RBC (0-5) /HPF Urine Microscopic WBC (0-5) /HPF Ur Epithelial Cells (None Seen) /HPF Urine Bacteria (None Seen) /HPF Urine Culture Reflexed (NO) Ur Random Creatinine MG/DL U Random Total Protein (0-12) mg/dL Urine Sodium (30-90) mmol/L Influenza Type A Ag (NEGATIVE) Influenza Type B Ag (NEGATIVE) RSV (PCR) (NEGATIVE) SARS-CoV-2 (PCR) (NEGATIVE) 06/08/24 Range/Units 20:27 WBC (3.98-10.04) x10^3/uL RBC (3.93-5.22) x10^6/uL Hgb (11.2-15.7) g/dL Hct (34.1-44.9) % MCV (79.4-94.8) fL MCH (25.6-32.2) pg MCHC (32.2-35.5) g/dL RDW (11.7-14.4) % Plt Count (182-369) x10^3/uL MPV (9.4-12.3) fL Gran % (34.0-71.1) % Immature Gran % (Auto) (0.001-0.429) % Nucleat RBC Rel Count (0.00-0.2) % Eos # (Auto) (0.04-0.36) x10^3/uL Immature Gran # (Auto) (0.001-0.031) x10^3u/L Absolute Lymphs (auto) (1.18-3.74) x10^3/uL Absolute Monos (auto) (0.24-0.86) x10^3/uL Absolute Nucleated RBC (0.00-0.012) x10^3u/L Lymphocytes % (19.3-51.7) % Monocytes % (4.7-12.5) % Eosinophils % (0.7-5.8) % Basophils % (0.1-1.2) % Absolute Granulocytes (1.56-6.13) x10^3/uL Basophils # (0.01-0.08) x10^3/uL Sodium (135-145) mmol/L Potassium (3.5-5.1) mmol/L Chloride (98-107) mmol/L Carbon Dioxide (22-30) mmol/L Anion Gap (5-15) MEQ/L BUN (7-17) mg/dL Creatinine (0.52-1.04) mg/dL Estimated GFR ML/MIN Glucose (74-106) mg/dL POC Glucometer 64 L (74 to 106) mg/dL Calcium (8.4-10.2) mg/dL Phosphorus (2.5-4.5) mg/dL Magnesium (1.6-2.3) mg/dL Total Bilirubin (0.2-1.3) mg/dL AST (14-36) U/L ALT (0-35) U/L Alkaline Phosphatase (38-126) U/L Serum Total Protein (6.3-8.2) g/dL Albumin (3.5-5.0) g/dL Procalcitonin (0.030-0.080) ng/mL TSH 3rd Generation (0.470-4.680) mIU/L Urine Color (Yellow) Urine Appearance (Clear) Urine pH (4.6-8.0) Ur Specific [place] (1.005-1.030) Urine Protein (Negative) Urine Glucose (UA) (Negative) mg/dL Urine Ketones (Negative) Urine Blood (Negative) Urine Nitrite (Negative) Urine Bilirubin (Negative) Urine Urobilinogen (0.2) mg/dL Ur Leukocyte Esterase (Negative) U Hyaline Cast (Auto) (0-2) /LPF Urine Microscopic RBC (0-5) /HPF Urine Microscopic WBC (0-5) /HPF Ur Epithelial Cells (None Seen) /HPF Urine Bacteria (None Seen) /HPF Urine Culture Reflexed (NO) Ur Random Creatinine MG/DL U Random Total Protein (0-12) mg/dL Urine Sodium (30-90) mmol/L Influenza Type A Ag (NEGATIVE) Influenza Type B Ag (NEGATIVE) RSV (PCR) (NEGATIVE) SARS-CoV-2 (PCR) (NEGATIVE) - Radiology Impressions Radiology Exams & Impressions: Radiology Procedures Category Date Time Status CHEST 1 VIEW (PORTABLE) Stat Exams 06/08/24 16:56 Completed Assessment/Plan (1) Hyponatremia Current Visit: Yes Status: Acute Assessment & Plan: 1. May be related to abruption of prednisone 2. Check cortisol and serum osm 3. Continue IVF 4. Check BMP tonight and then in the AM as well 5. Patient with normal mentation and no complaints otherwise Code(s): E87.1 - HYPO-OSMOLALITY AND HYPONATREMIA Telemedicine Encounter - Telemedicine Encounter Telemedicine Encounter: "The entirety of this encounter was performed via Telemedicine" This visit was performed using real-time audio and video connection between my location and thepatients locationwith the assistance of a surrogateat the patients location. Written or verbal consent was obtained from the patient/guardian to perform this [facility]. Any patient questions regarding the telemedicine interaction were answered.
--- NOTE | 2024-06-09 05:42 | PCM.NOTE ---
Date and Time: 06/09/24 0536 Subjective Assessment: 74 year old female with pmhx of COPD, HTN, and OA admitted 06/08/24 with hyponatremia and hypomagnesemia after presenting to ED with complaints of weakness and chills. Upon presentation vitals stable. Lab findings remarkable for hypomagnesemia and hyponatremia. Respiratory viral panel negative. Urine sodium was 99. Urine Cr 36. This could be due to hypoit in setting of stopping prednisone therapy, which she was on pred 5 mg daily on/off for a long time, most recently has been on it for the past month and abruptly stopped about 1-2 days ago. She reports being prescribed pred for her chronic cough. Admission for hyponatremia and hypomagnesemia. Objective Data Vital Signs: Vital Signs - 24 hr Temp Pulse Resp BP BP Pulse Ox 06/09/24 04:00 22 06/09/24 03:58 98.8 F 58 L 22 120/56 94 L 06/09/24 00:00 96.2 F 87 18 102/50 94 L 06/08/24 22:53 96.2 F 87 18 102/50 94 L 06/08/24 22:00 79 18 118/64 92 L 06/08/24 21:30 108/59 93 L 06/08/24 21:00 84 18 106/53 91 L 06/08/24 20:30 109/57 91 L 06/08/24 20:00 116/61 93 L 06/08/24 19:30 125/69 92 L 06/08/24 19:00 114/60 90 L 06/08/24 18:47 94 L 06/08/24 18:30 121/62 91 L 06/08/24 18:00 97 H 18 110/60 94 L 06/08/24 17:30 80 18 150/80 95 06/08/24 17:00 18 144/81 95 06/08/24 16:46 74 16 93 L 06/08/24 16:30 84 18 132/61 96 06/08/24 16:16 99.6 F 86 18 140/66 94 L 06/08/24 16:12 140/66 Pain Assessment - Last Documented Pain Intensity 0 Intake and Output: Intake & Output 06/06/24 06/07/24 06/08/24 06/09/24 11:59 11:59 11:59 11:59 Weight 40.6 kg Lab Results: Lab Results-Last 24 Hours 06/08/24 06/08/24 06/08/24 Range/Units 16:50 16:50 16:50 WBC 7.0 (3.98-10.04) x10^3/uL RBC 4.22 (3.93-5.22) x10^6/uL Hgb 13.0 (11.2-15.7) g/dL Hct 37.3 (34.1-44.9) % MCV 88.4 (79.4-94.8) fL MCH 30.8 (25.6-32.2) pg MCHC 34.9 (32.2-35.5) g/dL RDW 13.8 (11.7-14.4) % Plt Count 198 (182-369) x10^3/uL MPV 9.7 (9.4-12.3) fL Gran % 69.8 (34.0-71.1) % Immature Gran % (Auto) 0.3 (0.001-0.429) % Nucleat RBC Rel Count 0.0 (0.00-0.2) % Eos # (Auto) 0.03 L (0.04-0.36) x10^3/uL Immature Gran # (Auto) 0.02 (0.001-0.031) x10^3u/L Absolute Lymphs (auto) 0.97 L (1.18-3.74) x10^3/uL Absolute Monos (auto) 1.06 H (0.24-0.86) x10^3/uL Absolute Nucleated RBC 0.00 (0.00-0.012) x10^3u/L Lymphocytes % 13.8 L (19.3-51.7) % Monocytes % 15.1 H (4.7-12.5) % Eosinophils % 0.4 L (0.7-5.8) % Basophils % 0.6 (0.1-1.2) % Absolute Granulocytes 4.90 (1.56-6.13) x10^3/uL Basophils # 0.04 (0.01-0.08) x10^3/uL Sodium 125 L (135-145) mmol/L Potassium 4.1 (3.5-5.1) mmol/L Chloride 96 L (98-107) mmol/L Carbon Dioxide 23 (22-30) mmol/L Anion Gap 9.8 (5-15) MEQ/L BUN 12 (7-17) mg/dL Creatinine 0.69 (0.52-1.04) mg/dL Estimated GFR 89.9 ML/MIN Glucose 90 (74-106) mg/dL POC Glucometer (74 to 106) mg/dL Calcium 8.5 (8.4-10.2) mg/dL Phosphorus (2.5-4.5) mg/dL Magnesium (1.6-2.3) mg/dL Total Bilirubin 0.40 (0.2-1.3) mg/dL AST 33 (14-36) U/L ALT 17 (0-35) U/L Alkaline Phosphatase 63 (38-126) U/L Serum Total Protein 6.3 (6.3-8.2) g/dL Albumin 3.8 (3.5-5.0) g/dL Procalcitonin 0.053 (0.030-0.080) ng/mL TSH 3rd Generation (0.470-4.680) mIU/L Urine Color (Yellow) Urine Appearance (Clear) Urine pH (4.6-8.0) Ur Specific [place] (1.005-1.030) Urine Protein (Negative) Urine Glucose (UA) (Negative) mg/dL Urine Ketones (Negative) Urine Blood (Negative) Urine Nitrite (Negative) Urine Bilirubin (Negative) Urine Urobilinogen (0.2) mg/dL Ur Leukocyte Esterase (Negative) U Hyaline Cast (Auto) (0-2) /LPF Urine Microscopic RBC (0-5) /HPF Urine Microscopic WBC (0-5) /HPF Ur Epithelial Cells (None Seen) /HPF Urine Bacteria (None Seen) /HPF Urine Culture Reflexed (NO) Ur Random Creatinine MG/DL U Random Total Protein (0-12) mg/dL Urine Sodium (30-90) mmol/L Influenza Type A Ag (NEGATIVE) Influenza Type B Ag (NEGATIVE) RSV (PCR) (NEGATIVE) SARS-CoV-2 (PCR) (NEGATIVE) 06/08/24 06/08/24 06/08/24 Range/Units 16:50 18:16 18:17 WBC (3.98-10.04) x10^3/uL RBC (3.93-5.22) x10^6/uL Hgb (11.2-15.7) g/dL Hct (34.1-44.9) % MCV (79.4-94.8) fL MCH (25.6-32.2) pg MCHC (32.2-35.5) g/dL RDW (11.7-14.4) % Plt Count (182-369) x10^3/uL MPV (9.4-12.3) fL Gran % (34.0-71.1) % Immature Gran % (Auto) (0.001-0.429) % Nucleat RBC Rel Count (0.00-0.2) % Eos # (Auto) (0.04-0.36) x10^3/uL Immature Gran # (Auto) (0.001-0.031) x10^3u/L Absolute Lymphs (auto) (1.18-3.74) x10^3/uL Absolute Monos (auto) (0.24-0.86) x10^3/uL Absolute Nucleated RBC (0.00-0.012) x10^3u/L Lymphocytes % (19.3-51.7) % Monocytes % (4.7-12.5) % Eosinophils % (0.7-5.8) % Basophils % (0.1-1.2) % Absolute Granulocytes (1.56-6.13) x10^3/uL Basophils # (0.01-0.08) x10^3/uL Sodium (135-145) mmol/L Potassium (3.5-5.1) mmol/L Chloride (98-107) mmol/L Carbon Dioxide (22-30) mmol/L Anion Gap (5-15) MEQ/L BUN (7-17) mg/dL Creatinine (0.52-1.04) mg/dL Estimated GFR ML/MIN Glucose (74-106) mg/dL POC Glucometer (74 to 106) mg/dL Calcium (8.4-10.2) mg/dL Phosphorus (2.5-4.5) mg/dL Magnesium (1.6-2.3) mg/dL Total Bilirubin (0.2-1.3) mg/dL AST (14-36) U/L ALT (0-35) U/L Alkaline Phosphatase (38-126) U/L Serum Total Protein (6.3-8.2) g/dL Albumin (3.5-5.0) g/dL Procalcitonin (0.030-0.080) ng/mL TSH 3rd Generation (0.470-4.680) mIU/L Urine Color Yellow (Yellow) Urine Appearance Cloudy A (Clear) Urine pH 8.0 (4.6-8.0) Ur Specific [place] 1.010 (1.005-1.030) Urine Protein Negative (Negative) Urine Glucose (UA) Negative (Negative) mg/dL Urine Ketones Negative (Negative) Urine Blood Small A (Negative) Urine Nitrite Negative (Negative) Urine Bilirubin Negative (Negative) Urine Urobilinogen 0.2 (0.2) mg/dL Ur Leukocyte Esterase Negative (Negative) U Hyaline Cast (Auto) NONE SEEN (0-2) /LPF Urine Microscopic RBC 11-20 A (0-5) /HPF Urine Microscopic WBC 0-2 (0-5) /HPF Ur Epithelial Cells None Seen (None Seen) /HPF Urine Bacteria None Seen (None Seen) /HPF Urine Culture Reflexed NO (NO) Ur Random Creatinine 35.8 MG/DL U Random Total Protein 14 H (0-12) mg/dL Urine Sodium 99 H (30-90) mmol/L Influenza Type A Ag NEGATIVE (NEGATIVE) Influenza Type B Ag NEGATIVE (NEGATIVE) RSV (PCR) NEGATIVE (NEGATIVE) SARS-CoV-2 (PCR) NEGATIVE (NEGATIVE) 06/08/24 06/08/24 06/08/24 Range/Units 19:00 19:00 19:05 WBC (3.98-10.04) x10^3/uL RBC (3.93-5.22) x10^6/uL Hgb (11.2-15.7) g/dL Hct (34.1-44.9) % MCV (79.4-94.8) fL MCH (25.6-32.2) pg MCHC (32.2-35.5) g/dL RDW (11.7-14.4) % Plt Count (182-369) x10^3/uL MPV (9.4-12.3) fL Gran % (34.0-71.1) % Immature Gran % (Auto) (0.001-0.429) % Nucleat RBC Rel Count (0.00-0.2) % Eos # (Auto) (0.04-0.36) x10^3/uL Immature Gran # (Auto) (0.001-0.031) x10^3u/L Absolute Lymphs (auto) (1.18-3.74) x10^3/uL Absolute Monos (auto) (0.24-0.86) x10^3/uL Absolute Nucleated RBC (0.00-0.012) x10^3u/L Lymphocytes % (19.3-51.7) % Monocytes % (4.7-12.5) % Eosinophils % (0.7-5.8) % Basophils % (0.1-1.2) % Absolute Granulocytes (1.56-6.13) x10^3/uL Basophils # (0.01-0.08) x10^3/uL Sodium 126 L (135-145) mmol/L Potassium (3.5-5.1) mmol/L Chloride (98-107) mmol/L Carbon Dioxide (22-30) mmol/L Anion Gap (5-15) MEQ/L BUN (7-17) mg/dL Creatinine (0.52-1.04) mg/dL Estimated GFR ML/MIN Glucose (74-106) mg/dL POC Glucometer (74 to 106) mg/dL Calcium 7.9 L (8.4-10.2) mg/dL Phosphorus 3.6 (2.5-4.5) mg/dL Magnesium 1.5 L (1.6-2.3) mg/dL Total Bilirubin (0.2-1.3) mg/dL AST (14-36) U/L ALT (0-35) U/L Alkaline Phosphatase (38-126) U/L Serum Total Protein (6.3-8.2) g/dL Albumin (3.5-5.0) g/dL Procalcitonin (0.030-0.080) ng/mL TSH 3rd Generation 1.447 (0.470-4.680) mIU/L Urine Color (Yellow) Urine Appearance (Clear) Urine pH (4.6-8.0) Ur Specific [place] (1.005-1.030) Urine Protein (Negative) Urine Glucose (UA) (Negative) mg/dL Urine Ketones (Negative) Urine Blood (Negative) Urine Nitrite (Negative) Urine Bilirubin (Negative) Urine Urobilinogen (0.2) mg/dL Ur Leukocyte Esterase (Negative) U Hyaline Cast (Auto) (0-2) /LPF Urine Microscopic RBC (0-5) /HPF Urine Microscopic WBC (0-5) /HPF Ur Epithelial Cells (None Seen) /HPF Urine Bacteria (None Seen) /HPF Urine Culture Reflexed (NO) Ur Random Creatinine MG/DL U Random Total Protein (0-12) mg/dL Urine Sodium (30-90) mmol/L Influenza Type A Ag (NEGATIVE) Influenza Type B Ag (NEGATIVE) RSV (PCR) (NEGATIVE) SARS-CoV-2 (PCR) (NEGATIVE) 06/08/24 Range/Units 20:27 WBC (3.98-10.04) x10^3/uL RBC (3.93-5.22) x10^6/uL Hgb (11.2-15.7) g/dL Hct (34.1-44.9) % MCV (79.4-94.8) fL MCH (25.6-32.2) pg MCHC (32.2-35.5) g/dL RDW (11.7-14.4) % Plt Count (182-369) x10^3/uL MPV (9.4-12.3) fL Gran % (34.0-71.1) % Immature Gran % (Auto) (0.001-0.429) % Nucleat RBC Rel Count (0.00-0.2) % Eos # (Auto) (0.04-0.36) x10^3/uL Immature Gran # (Auto) (0.001-0.031) x10^3u/L Absolute Lymphs (auto) (1.18-3.74) x10^3/uL Absolute Monos (auto) (0.24-0.86) x10^3/uL Absolute Nucleated RBC (0.00-0.012) x10^3u/L Lymphocytes % (19.3-51.7) % Monocytes % (4.7-12.5) % Eosinophils % (0.7-5.8) % Basophils % (0.1-1.2) % Absolute Granulocytes (1.56-6.13) x10^3/uL Basophils # (0.01-0.08) x10^3/uL Sodium (135-145) mmol/L Potassium (3.5-5.1) mmol/L Chloride (98-107) mmol/L Carbon Dioxide (22-30) mmol/L Anion Gap (5-15) MEQ/L BUN (7-17) mg/dL Creatinine (0.52-1.04) mg/dL Estimated GFR ML/MIN Glucose (74-106) mg/dL POC Glucometer 64 L (74 to 106) mg/dL Calcium (8.4-10.2) mg/dL Phosphorus (2.5-4.5) mg/dL Magnesium (1.6-2.3) mg/dL Total Bilirubin (0.2-1.3) mg/dL AST (14-36) U/L ALT (0-35) U/L Alkaline Phosphatase (38-126) U/L Serum Total Protein (6.3-8.2) g/dL Albumin (3.5-5.0) g/dL Procalcitonin (0.030-0.080) ng/mL TSH 3rd Generation (0.470-4.680) mIU/L Urine Color (Yellow) Urine Appearance (Clear) Urine pH (4.6-8.0) Ur Specific [place] (1.005-1.030) Urine Protein (Negative) Urine Glucose (UA) (Negative) mg/dL Urine Ketones (Negative) Urine Blood (Negative) Urine Nitrite (Negative) Urine Bilirubin (Negative) Urine Urobilinogen (0.2) mg/dL Ur Leukocyte Esterase (Negative) U Hyaline Cast (Auto) (0-2) /LPF Urine Microscopic RBC (0-5) /HPF Urine Microscopic WBC (0-5) /HPF Ur Epithelial Cells (None Seen) /HPF Urine Bacteria (None Seen) /HPF Urine Culture Reflexed (NO) Ur Random Creatinine MG/DL U Random Total Protein (0-12) mg/dL Urine Sodium (30-90) mmol/L Influenza Type A Ag (NEGATIVE) Influenza Type B Ag (NEGATIVE) RSV (PCR) (NEGATIVE) SARS-CoV-2 (PCR) (NEGATIVE) Radiology Exams: Radiology Procedures Category Date Time Status CHEST 1 VIEW (PORTABLE) Stat Exams 06/08/24 16:56 Completed Assessment/Plan (1) Hyponatremia Current Visit: Yes Status: Acute Assessment & Plan: -? May be related to abruption of prednisone -cortisol and serum osm pending -Patient received fluid bolus in ED- continued at 300mls/hr - change to 100ml/hr -seizure precautions -bmp q4h Code(s): E87.1 - HYPO-OSMOLALITY AND HYPONATREMIA (2) Hypomagnesemia Current Visit: Yes Status: Acute Assessment & Plan: -reviewed mg from 06/08/24 - at 1.5 - will redraw today and replenish as needed Code(s): E83.42 - HYPOMAGNESEMIA (3) COPD (chronic obstructive pulmonary disease) Current Visit: Yes Status: Acute Assessment & Plan: -Supplemental oxygen with goal spo2 >91% -RT to follow -CXR reviewed and non-acute (4) Chills Current Visit: Yes Status: Acute Assessment & Plan: -Continue to monitor-patient afebrile since admission (5) HTN (hypertension) Current Visit: Yes Status: Acute Assessment & Plan: -stable continue home meds lisinopril Code(s): I10 - ESSENTIAL (PRIMARY) HYPERTENSION
[2024-06-09 05:45] LABS: ANION GAP 9.3 MEQ/L (5-15); Calcium 7.8 mg/dL (8.4-10.2); Creatinine 1 0.68 mg/dL (0.52-1.04); EST GLOMERULAR FILTRATION RATE 90.2 ML/MIN
[2024-06-09 05:48] LABS: Absolute Neutrophil Ct (ANC) 4.79 x10^3/uL (1.56-6.13); BASOPHIL % 0.3 % (0.1-1.2); Basophil (Absolute #) 0.02 x10^3/uL (0.01-0.08); Eosinophil (Absolute #) 0 x10^3/uL (0.04-0.36); Hematocrit 36.1 % (34.1-44.9); Hemoglobin 12.2 g/dL (11.2-15.7); IMMATURE GRAN # 0.05 x10^3u/L (0.001-0.031); IMMATURE GRAN % 0.7 % (0.001-0.429); Lymphocyte (Absolute #) 1.62 x10^3/uL (1.18-3.74); Lymphocytes % 21.7 % (19.3-51.7); Mean Cell Volume 90.9 fL (79.4-94.8); Mean Corpuscular Hemoglobin 30.7 pg (25.6-32.2); Mean Corpuscular Hgb Concent. 33.8 g/dL (32.2-35.5); Mean Platelet Volume 10.1 fL (9.4-12.3); Monocyte (Absolute #) 0.98 x10^3/uL (0.24-0.86); Monocytes % 13.1 % (4.7-12.5); Neutrophil % 64.2 % (34.0-71.1); Platelet Count 177 x10^3/uL (182-369); Red Blood Count 3.97 x10^6/uL (3.93-5.22); Red Cell Distribution Width 14.1 % (11.7-14.4); White Blood Count 7.5 x10^3/uL (3.98-10.04)
[2024-06-09] MEDS: MAGNESIUM SULF 2 G/50 ML BAG 2 GM/50 ML PIGGYBACK IV ONE (09:26)
--- NOTE | 2024-06-09 10:33 | PCM.DS ---
Discharge Summary Date of Admission: 06/08/24 22:11 Date of Discharge: 06/09/24 Admitting Physician: JOSH FANG MD Primary Care Provider: GREGORIO PARISI Allergies Allergies No Known Drug Allergies Allergy (Verified 06/08/24 16:13) Hospital Summary - Hospital Course Hospital Course: 74 year old female with pmhx of COPD, HTN, and OA admitted 06/08/24 with hyponatremia and hypomagnesemia after presenting to ED with complaints of weakness and chills. Upon presentation vitals stable. Lab findings remarkable for hypomagnesemia and hyponatremia. Respiratory viral panel negative. Urine sodium was 99. Urine Cr 36. This could be due to hypoit in setting of stopping prednisone therapy, which she was on pred 5 mg daily on/off for a long time, most recently has been on it for the past month and abruptly stopped about 1-2 days ago. She reports being prescribed pred for her chronic cough. Admission for hyponatremia and hypomagnesemia. Patient is feeling much better today. Sodium levels are improving. On RA which is her baseline. No fever/chills since admi ssion. Will recheck sodium levels this afternoon as patient is requesting discharge. Can discharge if greater than 130. Magnesium replenished. Advised fluid restriction and follow up with nephrology. Patient agreeable to plan. Will need labs rechecked this week either by pcp or nephrology (mag level and sodium levels.) Discharge Note New Diagnosis: hypomagnesemia/hyponatremia Follow Up: PCP/nephrology Latest Assessment & Plan (1) Hyponatremia Current Visit: Yes Status: Acute Assessment & Plan: -? May be related to abruption of prednisone -cortisol and serum osm pending -Patient received fluid bolus in ED- continued at 300mls/hr - change to 100ml/hr -seizure precautions -bmp q4h Code(s): E87.1 - HYPO-OSMOLALITY AND HYPONATREMIA (2) Hypomagnesemia Current Visit: Yes Status: Acute Assessment & Plan: -reviewed mg from 06/08/24 - at 1.5 - will redraw today and replenish as needed Code(s): E83.42 - HYPOMAGNESEMIA (3) COPD (chronic obstructive pulmonary disease) Current Visit: Yes Status: Acute Assessment & Plan: -Supplemental oxygen with goal spo2 >91% -RT to follow -CXR reviewed and non-acute (4) Chills Current Visit: Yes Status: Acute Assessment & Plan: -Continue to monitor-patient afebrile since admission (5) HTN (hypertension) Current Visit: Yes Status: Acute Assessment & Plan: -stable continue home meds lisinopril I spent 35 minutes [id number] with the patient on the day of discharge performing discharge exam, discussing hospital stay and discharge instructions with patient and caregivers, preparation of discharge records, prescriptions & referral forms and addressing any questions/concerns the patient had as documented above. - Vitals & Intake/Output Vital Signs: Vital Signs Temperature 99.0 F 06/09/24 07:00 Pulse Rate 86 06/09/24 07:00 Respiratory Rate 20 06/09/24 07:00 Blood Pressure 110/56 06/09/24 07:00 O2 Sat by Pulse Oximetry 93 L 06/09/24 07:00 Intake & Output: Intake & Output 06/06/24 06/07/24 06/08/24 06/09/24 11:59 11:59 11:59 11:59 Intake Total 1899 Balance 1899 Weight 40.6 kg - Lab Result Diagrams: 06/09/24 04:30 06/09/24 05:20 Lab Results-Last 24 Hrs: Lab Results-Last 24 Hours 06/08/24 06/08/24 06/08/24 Range/Units 16:50 16:50 16:50 WBC 7.0 (3.98-10.04) x10^3/uL RBC 4.22 (3.93-5.22) x10^6/uL Hgb 13.0 (11.2-15.7) g/dL Hct 37.3 (34.1-44.9) % MCV 88.4 (79.4-94.8) fL MCH 30.8 (25.6-32.2) pg MCHC 34.9 (32.2-35.5) g/dL RDW 13.8 (11.7-14.4) % Plt Count 198 (182-369) x10^3/uL MPV 9.7 (9.4-12.3) fL Gran % 69.8 (34.0-71.1) % Immature Gran % (Auto) 0.3 (0.001-0.429) % Nucleat RBC Rel Count 0.0 (0.00-0.2) % Eos # (Auto) 0.03 L (0.04-0.36) x10^3/uL Immature Gran # (Auto) 0.02 (0.001-0.031) x10^3u/L Absolute Lymphs (auto) 0.97 L (1.18-3.74) x10^3/uL Absolute Monos (auto) 1.06 H (0.24-0.86) x10^3/uL Absolute Nucleated RBC 0.00 (0.00-0.012) x10^3u/L Lymphocytes % 13.8 L (19.3-51.7) % Monocytes % 15.1 H (4.7-12.5) % Eosinophils % 0.4 L (0.7-5.8) % Basophils % 0.6 (0.1-1.2) % Absolute Granulocytes 4.90 (1.56-6.13) x10^3/uL Basophils # 0.04 (0.01-0.08) x10^3/uL Sodium 125 L (135-145) mmol/L Potassium 4.1 (3.5-5.1) mmol/L Chloride 96 L (98-107) mmol/L Carbon Dioxide 23 (22-30) mmol/L Anion Gap 9.8 (5-15) MEQ/L BUN 12 (7-17) mg/dL Creatinine 0.69 (0.52-1.04) mg/dL Estimated GFR 89.9 ML/MIN Glucose 90 (74-106) mg/dL POC Glucometer (74 to 106) mg/dL Calcium 8.5 (8.4-10.2) mg/dL Phosphorus (2.5-4.5) mg/dL Magnesium (1.6-2.3) mg/dL Total Bilirubin 0.40 (0.2-1.3) mg/dL AST 33 (14-36) U/L ALT 17 (0-35) U/L Alkaline Phosphatase 63 (38-126) U/L Serum Total Protein 6.3 (6.3-8.2) g/dL Albumin 3.8 (3.5-5.0) g/dL Procalcitonin 0.053 (0.030-0.080) ng/mL TSH 3rd Generation (0.470-4.680) mIU/L Urine Color (Yellow) Urine Appearance (Clear) Urine pH (4.6-8.0) Ur Specific [place] (1.005-1.030) Urine Protein (Negative) Urine Glucose (UA) (Negative) mg/dL Urine Ketones (Negative) Urine Blood (Negative) Urine Nitrite (Negative) Urine Bilirubin (Negative) Urine Urobilinogen (0.2) mg/dL Ur Leukocyte Esterase (Negative) U Hyaline Cast (Auto) (0-2) /LPF Urine Microscopic RBC (0-5) /HPF Urine Microscopic WBC (0-5) /HPF Ur Epithelial Cells (None Seen) /HPF Urine Bacteria (None Seen) /HPF Urine Culture Reflexed (NO) Ur Random Creatinine MG/DL U Random Total Protein (0-12) mg/dL Urine Sodium (30-90) mmol/L Influenza Type A Ag (NEGATIVE) Influenza Type B Ag (NEGATIVE) RSV (PCR) (NEGATIVE) SARS-CoV-2 (PCR) (NEGATIVE) 06/08/24 06/08/24 06/08/24 Range/Units 16:50 18:16 18:17 WBC (3.98-10.04) x10^3/uL RBC (3.93-5.22) x10^6/uL Hgb (11.2-15.7) g/dL Hct (34.1-44.9) % MCV (79.4-94.8) fL MCH (25.6-32.2) pg MCHC (32.2-35.5) g/dL RDW (11.7-14.4) % Plt Count (182-369) x10^3/uL MPV (9.4-12.3) fL Gran % (34.0-71.1) % Immature Gran % (Auto) (0.001-0.429) % Nucleat RBC Rel Count (0.00-0.2) % Eos # (Auto) (0.04-0.36) x10^3/uL Immature Gran # (Auto) (0.001-0.031) x10^3u/L Absolute Lymphs (auto) (1.18-3.74) x10^3/uL Absolute Monos (auto) (0.24-0.86) x10^3/uL Absolute Nucleated RBC (0.00-0.012) x10^3u/L Lymphocytes % (19.3-51.7) % Monocytes % (4.7-12.5) % Eosinophils % (0.7-5.8) % Basophils % (0.1-1.2) % Absolute Granulocytes (1.56-6.13) x10^3/uL Basophils # (0.01-0.08) x10^3/uL Sodium (135-145) mmol/L Potassium (3.5-5.1) mmol/L Chloride (98-107) mmol/L Carbon Dioxide (22-30) mmol/L Anion Gap (5-15) MEQ/L BUN (7-17) mg/dL Creatinine (0.52-1.04) mg/dL Estimated GFR ML/MIN Glucose (74-106) mg/dL POC Glucometer (74 to 106) mg/dL Calcium (8.4-10.2) mg/dL Phosphorus (2.5-4.5) mg/dL Magnesium (1.6-2.3) mg/dL Total Bilirubin (0.2-1.3) mg/dL AST (14-36) U/L ALT (0-35) U/L Alkaline Phosphatase (38-126) U/L Serum Total Protein (6.3-8.2) g/dL Albumin (3.5-5.0) g/dL Procalcitonin (0.030-0.080) ng/mL TSH 3rd Generation (0.470-4.680) mIU/L Urine Color Yellow (Yellow) Urine Appearance Cloudy A (Clear) Urine pH 8.0 (4.6-8.0) Ur Specific [place] 1.010 (1.005-1.030) Urine Protein Negative (Negative) Urine Glucose (UA) Negative (Negative) mg/dL Urine Ketones Negative (Negative) Urine Blood Small A (Negative) Urine Nitrite Negative (Negative) Urine Bilirubin Negative (Negative) Urine Urobilinogen 0.2 (0.2) mg/dL Ur Leukocyte Esterase Negative (Negative) U Hyaline Cast (Auto) NONE SEEN (0-2) /LPF Urine Microscopic RBC 11-20 A (0-5) /HPF Urine Microscopic WBC 0-2 (0-5) /HPF Ur Epithelial Cells None Seen (None Seen) /HPF Urine Bacteria None Seen (None Seen) /HPF Urine Culture Reflexed NO (NO) Ur Random Creatinine 35.8 MG/DL U Random Total Protein 14 H (0-12) mg/dL Urine Sodium 99 H (30-90) mmol/L Influenza Type A Ag NEGATIVE (NEGATIVE) Influenza Type B Ag NEGATIVE (NEGATIVE) RSV (PCR) NEGATIVE (NEGATIVE) SARS-CoV-2 (PCR) NEGATIVE (NEGATIVE) 06/08/24 06/08/24 06/08/24 Range/Units 19:00 19:00 19:05 WBC (3.98-10.04) x10^3/uL RBC (3.93-5.22) x10^6/uL Hgb (11.2-15.7) g/dL Hct (34.1-44.9) % MCV (79.4-94.8) fL MCH (25.6-32.2) pg MCHC (32.2-35.5) g/dL RDW (11.7-14.4) % Plt Count (182-369) x10^3/uL MPV (9.4-12.3) fL Gran % (34.0-71.1) % Immature Gran % (Auto) (0.001-0.429) % Nucleat RBC Rel Count (0.00-0.2) % Eos # (Auto) (0.04-0.36) x10^3/uL Immature Gran # (Auto) (0.001-0.031) x10^3u/L Absolute Lymphs (auto) (1.18-3.74) x10^3/uL Absolute Monos (auto) (0.24-0.86) x10^3/uL Absolute Nucleated RBC (0.00-0.012) x10^3u/L Lymphocytes % (19.3-51.7) % Monocytes % (4.7-12.5) % Eosinophils % (0.7-5.8) % Basophils % (0.1-1.2) % Absolute Granulocytes (1.56-6.13) x10^3/uL Basophils # (0.01-0.08) x10^3/uL Sodium 126 L (135-145) mmol/L Potassium (3.5-5.1) mmol/L Chloride (98-107) mmol/L Carbon Dioxide (22-30) mmol/L Anion Gap (5-15) MEQ/L BUN (7-17) mg/dL Creatinine (0.52-1.04) mg/dL Estimated GFR ML/MIN Glucose (74-106) mg/dL POC Glucometer (74 to 106) mg/dL Calcium 7.9 L (8.4-10.2) mg/dL Phosphorus 3.6 (2.5-4.5) mg/dL Magnesium 1.5 L (1.6-2.3) mg/dL Total Bilirubin (0.2-1.3) mg/dL AST (14-36) U/L ALT (0-35) U/L Alkaline Phosphatase (38-126) U/L Serum Total Protein (6.3-8.2) g/dL Albumin (3.5-5.0) g/dL Procalcitonin (0.030-0.080) ng/mL TSH 3rd Generation 1.447 (0.470-4.680) mIU/L Urine Color (Yellow) Urine Appearance (Clear) Urine pH (4.6-8.0) Ur Specific [place] (1.005-1.030) Urine Protein (Negative) Urine Glucose (UA) (Negative) mg/dL Urine Ketones (Negative) Urine Blood (Negative) Urine Nitrite (Negative) Urine Bilirubin (Negative) Urine Urobilinogen (0.2) mg/dL Ur Leukocyte Esterase (Negative) U Hyaline Cast (Auto) (0-2) /LPF Urine Microscopic RBC (0-5) /HPF Urine Microscopic WBC (0-5) /HPF Ur Epithelial Cells (None Seen) /HPF Urine Bacteria (None Seen) /HPF Urine Culture Reflexed (NO) Ur Random Creatinine MG/DL U Random Total Protein (0-12) mg/dL Urine Sodium (30-90) mmol/L Influenza Type A Ag (NEGATIVE) Influenza Type B Ag (NEGATIVE) RSV (PCR) (NEGATIVE) SARS-CoV-2 (PCR) (NEGATIVE) 06/08/24 06/09/24 06/09/24 Range/Units 20:27 04:30 04:30 WBC 7.5 (3.98-10.04) x10^3/uL RBC 3.97 (3.93-5.22) x10^6/uL Hgb 12.2 (11.2-15.7) g/dL Hct 36.1 (34.1-44.9) % MCV 90.9 (79.4-94.8) fL MCH 30.7 (25.6-32.2) pg MCHC 33.8 (32.2-35.5) g/dL RDW 14.1 (11.7-14.4) % Plt Count 177 L (182-369) x10^3/uL MPV 10.1 (9.4-12.3) fL Gran % 64.2 (34.0-71.1) % Immature Gran % (Auto) 0.7 H (0.001-0.429) % Nucleat RBC Rel Count 0.0 (0.00-0.2) % Eos # (Auto) 0 L (0.04-0.36) x10^3/uL Immature Gran # (Auto) 0.05 H (0.001-0.031) x10^3u/L Absolute Lymphs (auto) 1.62 (1.18-3.74) x10^3/uL Absolute Monos (auto) 0.98 H (0.24-0.86) x10^3/uL Absolute Nucleated RBC 0.00 (0.00-0.012) x10^3u/L Lymphocytes % 21.7 (19.3-51.7) % Monocytes % 13.1 H (4.7-12.5) % Eosinophils % 0.0 L (0.7-5.8) % Basophils % 0.3 (0.1-1.2) % Absolute Granulocytes 4.79 (1.56-6.13) x10^3/uL Basophils # 0.02 (0.01-0.08) x10^3/uL Sodium (135-145) mmol/L Potassium (3.5-5.1) mmol/L Chloride (98-107) mmol/L Carbon Dioxide (22-30) mmol/L Anion Gap (5-15) MEQ/L BUN (7-17) mg/dL Creatinine (0.52-1.04) mg/dL Estimated GFR ML/MIN Glucose (74-106) mg/dL POC Glucometer 64 L (74 to 106) mg/dL Calcium (8.4-10.2) mg/dL Phosphorus (2.5-4.5) mg/dL Magnesium 1.5 L (1.6-2.3) mg/dL Total Bilirubin (0.2-1.3) mg/dL AST (14-36) U/L ALT (0-35) U/L Alkaline Phosphatase (38-126) U/L Serum Total Protein (6.3-8.2) g/dL Albumin (3.5-5.0) g/dL Procalcitonin (0.030-0.080) ng/mL TSH 3rd Generation (0.470-4.680) mIU/L Urine Color (Yellow) Urine Appearance (Clear) Urine pH (4.6-8.0) Ur Specific [place] (1.005-1.030) Urine Protein (Negative) Urine Glucose (UA) (Negative) mg/dL Urine Ketones (Negative) Urine Blood (Negative) Urine Nitrite (Negative) Urine Bilirubin (Negative) Urine Urobilinogen (0.2) mg/dL Ur Leukocyte Esterase (Negative) U Hyaline Cast (Auto) (0-2) /LPF Urine Microscopic RBC (0-5) /HPF Urine Microscopic WBC (0-5) /HPF Ur Epithelial Cells (None Seen) /HPF Urine Bacteria (None Seen) /HPF Urine Culture Reflexed (NO) Ur Random Creatinine MG/DL U Random Total Protein (0-12) mg/dL Urine Sodium (30-90) mmol/L Influenza Type A Ag (NEGATIVE) Influenza Type B Ag (NEGATIVE) RSV (PCR) (NEGATIVE) SARS-CoV-2 (PCR) (NEGATIVE) 06/09/24 Range/Units 05:20 WBC (3.98-10.04) x10^3/uL RBC (3.93-5.22) x10^6/uL Hgb (11.2-15.7) g/dL Hct (34.1-44.9) % MCV (79.4-94.8) fL MCH (25.6-32.2) pg MCHC (32.2-35.5) g/dL RDW (11.7-14.4) % Plt Count (182-369) x10^3/uL MPV (9.4-12.3) fL Gran % (34.0-71.1) % Immature Gran % (Auto) (0.001-0.429) % Nucleat RBC Rel Count (0.00-0.2) % Eos # (Auto) (0.04-0.36) x10^3/uL Immature Gran # (Auto) (0.001-0.031) x10^3u/L Absolute Lymphs (auto) (1.18-3.74) x10^3/uL Absolute Monos (auto) (0.24-0.86) x10^3/uL Absolute Nucleated RBC (0.00-0.012) x10^3u/L Lymphocytes % (19.3-51.7) % Monocytes % (4.7-12.5) % Eosinophils % (0.7-5.8) % Basophils % (0.1-1.2) % Absolute Granulocytes (1.56-6.13) x10^3/uL Basophils # (0.01-0.08) x10^3/uL Sodium 129 L (135-145) mmol/L Potassium 4.0 (3.5-5.1) mmol/L Chloride 103 (98-107) mmol/L Carbon Dioxide 20 L (22-30) mmol/L Anion Gap 9.3 (5-15) MEQ/L BUN 10 (7-17) mg/dL Creatinine 0.68 (0.52-1.04) mg/dL Estimated GFR 90.2 ML/MIN Glucose 70 L (74-106) mg/dL POC Glucometer (74 to 106) mg/dL Calcium 7.8 L (8.4-10.2) mg/dL Phosphorus (2.5-4.5) mg/dL Magnesium (1.6-2.3) mg/dL Total Bilirubin (0.2-1.3) mg/dL AST (14-36) U/L ALT (0-35) U/L Alkaline Phosphatase (38-126) U/L Serum Total Protein (6.3-8.2) g/dL Albumin (3.5-5.0) g/dL Procalcitonin (0.030-0.080) ng/mL TSH 3rd Generation (0.470-4.680) mIU/L Urine Color (Yellow) Urine Appearance (Clear) Urine pH (4.6-8.0) Ur Specific [place] (1.005-1.030) Urine Protein (Negative) Urine Glucose (UA) (Negative) mg/dL Urine Ketones (Negative) Urine Blood (Negative) Urine Nitrite (Negative) Urine Bilirubin (Negative) Urine Urobilinogen (0.2) mg/dL Ur Leukocyte Esterase (Negative) U Hyaline Cast (Auto) (0-2) /LPF Urine Microscopic RBC (0-5) /HPF Urine Microscopic WBC (0-5) /HPF Ur Epithelial Cells (None Seen) /HPF Urine Bacteria (None Seen) /HPF Urine Culture Reflexed (NO) Ur Random Creatinine MG/DL U Random Total Protein (0-12) mg/dL Urine Sodium (30-90) mmol/L Influenza Type A Ag (NEGATIVE) Influenza Type B Ag (NEGATIVE) RSV (PCR) (NEGATIVE) SARS-CoV-2 (PCR) (NEGATIVE) - Radiology Exams Ordered Rad Exams-Entire Visit: Radiology Procedures Category Date Time Status CHEST 1 VIEW (PORTABLE) Stat Exams 06/08/24 16:56 Completed - Procedures and Test Procedures and Tests throughout Hospitalization: Therapy Orders & Screens 06/08/24 16:46 Respiratory Therapy Assessment DAILY Comment: 06/09/24 08:48 Qualify for Home Oxygen TODAY Comment: Diagnosis: hyponatremia/WEAKNESS Discharge Exam General Appearance: no apparent distress Neurologic Exam: alert, oriented x 3, cooperative Eye Exam: PERRL Ears, Nose, Throat Exam: normal ENT inspection Neck Exam: normal inspection Respiratory Exam: crackles/rales Cardiovascular Exam: regular rate/rhythm, normal heart sounds Gastrointestinal/Abdomen Exam: soft, normal bowel sounds Pelvic Exam: deferred Rectal Exam: deferred Back Exam: normal inspection Extremity Exam: normal inspection Skin Exam: normal color Final Diagnosis/Problem List - Final Discharge Diagnosis/Problem (1) Hyponatremia Current Visit: Yes Status: Acute Code(s): E87.1 - HYPO-OSMOLALITY AND HYPONATREMIA (2) Hypomagnesemia Current Visit: Yes Status: Acute Code(s): E83.42 - HYPOMAGNESEMIA (3) COPD (chronic obstructive pulmonary disease) Current Visit: Yes Status: Chronic (4) Chills Current Visit: Yes Status: Resolved (5) HTN (hypertension) Current Visit: Yes Status: Chronic Code(s): I10 - ESSENTIAL (PRIMARY) HYPERTENSION - Discharge Discharge Date: 06/09/24 Disposition: Home, Self-Care Condition: Good Prescriptions: Continue Lisinopril 10 mg [Zestril 10 MG] 10 mg PO DAILY Fluticasone/Vilanterol [Breo Ellipta 100-25 Mcg Inhalr] 1 ea DAILY Clopidogrel Bisulfate [Clopidogrel] 75 mg PO DAILY Additional Instructions: Call PCP to get sodium and magnesium levels checked by this week Follow up with: REBEKAH MCKEON [CONSULTING PHYSICIAN] - 06/23/24 3:00 pm (APPOINTMENT IN THE [facility] OFFICE) GREGORIO PARISI NP [Primary Care Provider] - Call for Appointment
[2024-06-09] MEDS: PLAVIX Tablet PO SCH (11:08)
[2024-06-09] MEDS: Zestril 10 MG PO SCH (11:09)
[2024-06-09 16:43] LABS: ANION GAP 8.9 MEQ/L (5-15); Calcium 7.6 mg/dL (8.4-10.2); Creatinine 1 0.64 mg/dL (0.52-1.04); EST GLOMERULAR FILTRATION RATE 91.5 ML/MIN; Potassium 3.6 mmol/L (3.5-5.1)
[2024-06-09] MEDS: TOLVAPTAN PO SCH (16:59)
[2024-06-09 20:45] LABS: ANION GAP 9.2 MEQ/L (5-15); Calcium 7.8 mg/dL (8.4-10.2); Creatinine 1 0.65 mg/dL (0.52-1.04); EST GLOMERULAR FILTRATION RATE 91.2 ML/MIN; Potassium 3.7 mmol/L (3.5-5.1)
[2024-06-09] MEDS: TYLENOL 325 MG PO PRN (21:18)
[2024-06-09] MEDS ORDERED: SODIUM BICARBONATE PO SCH (22:00)
[2024-06-10 04:39] LABS: Absolute Neutrophil Ct (ANC) 7.91 x10^3/uL (1.56-6.13); BASOPHIL % 0.3 % (0.1-1.2); Basophil (Absolute #) 0.03 x10^3/uL (0.01-0.08); Eosinophil % 0.6 % (0.7-5.8); Eosinophil (Absolute #) 0.07 x10^3/uL (0.04-0.36); Hemoglobin 12.5 g/dL (11.2-15.7); IMMATURE GRAN # 0.05 x10^3u/L (0.001-0.031); IMMATURE GRAN % 0.5 % (0.001-0.429); Lymphocyte (Absolute #) 1.83 x10^3/uL (1.18-3.74); Lymphocytes % 16.7 % (19.3-51.7); Mean Cell Volume 88.5 fL (79.4-94.8); Mean Corpuscular Hemoglobin 29.9 pg (25.6-32.2); Mean Corpuscular Hgb Concent. 33.8 g/dL (32.2-35.5); Mean Platelet Volume 10.2 fL (9.4-12.3); Monocyte (Absolute #) 1.09 x10^3/uL (0.24-0.86); Monocytes % 9.9 % (4.7-12.5); Platelet Count 180 x10^3/uL (182-369); Red Blood Count 4.18 x10^6/uL (3.93-5.22); Red Cell Distribution Width 14.6 % (11.7-14.4)
[2024-06-10 05:18] LABS: ANION GAP 10.8 MEQ/L (5-15); BILIRUBIN,TOTAL 0.4 mg/dL (0.2-1.3); Creatinine 1 0.71 mg/dL (0.52-1.04); EST GLOMERULAR FILTRATION RATE 88.1 ML/MIN; MAGNESIUM 1.8 mg/dL (1.6-2.3); Potassium 3.8 mmol/L (3.5-5.1); Total Protein 5.5 g/dL (6.3-8.2)
--- NOTE | 2024-06-10 05:46 | PCM.DS ---
Discharge Summary Date of Admission: 06/08/24 22:11 Date of Discharge: 06/10/24 Admitting Physician: JOSH FANG MD Primary Care Provider: GREGORIO PARISI Allergies Allergies No Known Drug Allergies Allergy (Verified 06/08/24 16:13) Hospital Summary - Hospital Course Hospital Course: 74 year old female with pmhx of COPD, HTN, and OA admitted 06/08/24 with hyponatremia and hypomagnesemia after presenting to ED with complaints of weakness and chills. Upon presentation vitals stable. Lab findings remarkable for hypomagnesemia and hyponatremia. Respiratory viral panel negative. Urine sodium was 99. Urine Cr 36. This could be due to hypoit in setting of stopping prednisone therapy, which she was on pred 5 mg daily on/off for a long time, most recently has been on it for the past month and abruptly stopped about 1-2 days ago. She reports being prescribed pred for her chronic cough. Admission for hyponatremia and hypomagnesemia. Patient is feeling much better today. Sodium levels are improving. On RA which is her baseline. No fever/chills since ad mission. Will recheck sodium levels this afternoon as patient is requesting discharge. Can discharge if greater than 130. Magnesium replenished. Advised fluid restriction and follow up with nephrology. Patient agreeable to plan. Will need labs rechecked this week either by pcp or nephrology (mag level and sodium levels.) Discharge delayed due to low sodium on recheck 06/09/24. Today sodium levels at 133 after [place]. Patient will need follow up with nephrology and to continue fluid restriction. Fluid restriction education printed for patient. Patient noted with mild temp of 100 overnight and jump in WBC. CXR showing Left base pneumonia. Patient denies shortness of breath (on RA), cough, congestion, and states she is asymptomatic. She wishes to be discharged today. Will discharge on cefuroxime with close follow up with PCP. Discharge Note New Diagnosis: hypomagnesemia/hyponatremia/Pneumonia Follow Up: PCP/nephrology Latest Assessment & Plan (1) Hyponatremia Current Visit: Yes Status: Acute Assessment & Plan: -? May be related to abruption of prednisone -cortisol and serum osm pending -Patient received fluid bolus in ED- continued at 300mls/hr - change to 100ml/hr -seizure precautions -bmp q4h 06/10/24: -BMP reviewed with sodium at 133 after samsca given yesterday -pt to remain on fluid restriction - written instructions provided -close follow up with PCP/nephrology for evaluation and labs rechecked this week Code(s): E87.1 - HYPO-OSMOLALITY AND HYPONATREMIA Pneumonia -CXR with left base infiltrate - will send home on cefuroxime- patient asymptomatic (2) Hypomagnesemia Current Visit: Yes Status: Acute Assessment & Plan: -reviewed mg from 06/08/24 - at 1.5 - will redraw today and replenish as needed 06/10/24: -resolved Code(s): E83.42 - HYPOMAGNESEMIA (3) COPD (chronic obstructive pulmonary disease) Current Visit: Yes Status: Acute Assessment & Plan: -Supplemental oxygen with goal spo2 >91% -RT to follow -CXR reviewed and non-acute (4) Chills Current Visit: Yes Status: Acute Assessment & Plan: -Continue to monitor-patient afebrile since admission (5) HTN (hypertension) Current Visit: Yes Status: Acute Assessment & Plan: -stable continue home meds lisinopril - Vitals & Intake/Output Vital Signs: Vital Signs Temperature 98.1 F 06/10/24 04:00 Pulse Rate 85 06/10/24 04:00 Respiratory Rate 18 06/10/24 04:00 Blood Pressure 107/58 06/10/24 04:00 O2 Sat by Pulse Oximetry 91 L 06/10/24 04:00 Intake & Output: Intake & Output 06/07/24 06/08/24 06/09/24 06/10/24 11:59 11:59 11:59 11:59 Intake Total 1899 690 Balance 1899 690 Weight 40.6 kg - Lab Result Diagrams: 06/10/24 04:05 06/10/24 04:05 Lab Results-Last 24 Hrs: Lab Results-Last 24 Hours 06/09/24 06/09/24 06/09/24 Range/Units 04:30 04:30 05:20 WBC 7.5 (3.98-10.04) x10^3/uL RBC 3.97 (3.93-5.22) x10^6/uL Hgb 12.2 (11.2-15.7) g/dL Hct 36.1 (34.1-44.9) % MCV 90.9 (79.4-94.8) fL MCH 30.7 (25.6-32.2) pg MCHC 33.8 (32.2-35.5) g/dL RDW 14.1 (11.7-14.4) % Plt Count 177 L (182-369) x10^3/uL MPV 10.1 (9.4-12.3) fL Gran % 64.2 (34.0-71.1) % Immature Gran % (Auto) 0.7 H (0.001-0.429) % Nucleat RBC Rel Count 0.0 (0.00-0.2) % Eos # (Auto) 0 L (0.04-0.36) x10^3/uL Immature Gran # (Auto) 0.05 H (0.001-0.031) x10^3u/L Absolute Lymphs (auto) 1.62 (1.18-3.74) x10^3/uL Absolute Monos (auto) 0.98 H (0.24-0.86) x10^3/uL Absolute Nucleated RBC 0.00 (0.00-0.012) x10^3u/L Lymphocytes % 21.7 (19.3-51.7) % Monocytes % 13.1 H (4.7-12.5) % Eosinophils % 0.0 L (0.7-5.8) % Basophils % 0.3 (0.1-1.2) % Absolute Granulocytes 4.79 (1.56-6.13) x10^3/uL Basophils # 0.02 (0.01-0.08) x10^3/uL Sodium 129 L (135-145) mmol/L Potassium 4.0 (3.5-5.1) mmol/L Chloride 103 (98-107) mmol/L Carbon Dioxide 20 L (22-30) mmol/L Anion Gap 9.3 (5-15) MEQ/L BUN 10 (7-17) mg/dL Creatinine 0.68 (0.52-1.04) mg/dL Estimated GFR 90.2 ML/MIN Glucose 70 L (74-106) mg/dL Calcium 7.8 L (8.4-10.2) mg/dL Magnesium 1.5 L (1.6-2.3) mg/dL Total Bilirubin (0.2-1.3) mg/dL AST (14-36) U/L ALT (0-35) U/L Alkaline Phosphatase (38-126) U/L Serum Total Protein (6.3-8.2) g/dL Albumin (3.5-5.0) g/dL Acetaminophen (10-30) ug/ml 06/09/24 06/09/24 06/09/24 Range/Units 13:06 16:28 20:28 WBC (3.98-10.04) x10^3/uL RBC (3.93-5.22) x10^6/uL Hgb (11.2-15.7) g/dL Hct (34.1-44.9) % MCV (79.4-94.8) fL MCH (25.6-32.2) pg MCHC (32.2-35.5) g/dL RDW (11.7-14.4) % Plt Count (182-369) x10^3/uL MPV (9.4-12.3) fL Gran % (34.0-71.1) % Immature Gran % (Auto) (0.001-0.429) % Nucleat RBC Rel Count (0.00-0.2) % Eos # (Auto) (0.04-0.36) x10^3/uL Immature Gran # (Auto) (0.001-0.031) x10^3u/L Absolute Lymphs (auto) (1.18-3.74) x10^3/uL Absolute Monos (auto) (0.24-0.86) x10^3/uL Absolute Nucleated RBC (0.00-0.012) x10^3u/L Lymphocytes % (19.3-51.7) % Monocytes % (4.7-12.5) % Eosinophils % (0.7-5.8) % Basophils % (0.1-1.2) % Absolute Granulocytes (1.56-6.13) x10^3/uL Basophils # (0.01-0.08) x10^3/uL Sodium 126 L 125 L 128 L (135-145) mmol/L Potassium 3.6 3.7 (3.5-5.1) mmol/L Chloride 102 104 (98-107) mmol/L Carbon Dioxide 18 L 19 L (22-30) mmol/L Anion Gap 8.9 9.2 (5-15) MEQ/L BUN 12 12 (7-17) mg/dL Creatinine 0.64 0.65 (0.52-1.04) mg/dL Estimated GFR 91.5 91.2 ML/MIN Glucose 89 69 L (74-106) mg/dL Calcium 7.6 L 7.8 L (8.4-10.2) mg/dL Magnesium (1.6-2.3) mg/dL Total Bilirubin (0.2-1.3) mg/dL AST (14-36) U/L ALT (0-35) U/L Alkaline Phosphatase (38-126) U/L Serum Total Protein (6.3-8.2) g/dL Albumin (3.5-5.0) g/dL Acetaminophen (10-30) ug/ml 06/09/24 06/10/24 06/10/24 Range/Units 20:28 04:05 04:05 WBC 11.0 H (3.98-10.04) x10^3/uL RBC 4.18 (3.93-5.22) x10^6/uL Hgb 12.5 (11.2-15.7) g/dL Hct 37.0 (34.1-44.9) % MCV 88.5 (79.4-94.8) fL MCH 29.9 (25.6-32.2) pg MCHC 33.8 (32.2-35.5) g/dL RDW 14.6 H (11.7-14.4) % Plt Count 180 L (182-369) x10^3/uL MPV 10.2 (9.4-12.3) fL Gran % 72.0 H (34.0-71.1) % Immature Gran % (Auto) 0.5 H (0.001-0.429) % Nucleat RBC Rel Count 0.0 (0.00-0.2) % Eos # (Auto) 0.07 (0.04-0.36) x10^3/uL Immature Gran # (Auto) 0.05 H (0.001-0.031) x10^3u/L Absolute Lymphs (auto) 1.83 (1.18-3.74) x10^3/uL Absolute Monos (auto) 1.09 H (0.24-0.86) x10^3/uL Absolute Nucleated RBC 0.00 (0.00-0.012) x10^3u/L Lymphocytes % 16.7 L (19.3-51.7) % Monocytes % 9.9 (4.7-12.5) % Eosinophils % 0.6 L (0.7-5.8) % Basophils % 0.3 (0.1-1.2) % Absolute Granulocytes 7.91 H (1.56-6.13) x10^3/uL Basophils # 0.03 (0.01-0.08) x10^3/uL Sodium 133 L (135-145) mmol/L Potassium 3.8 (3.5-5.1) mmol/L Chloride 107 (98-107) mmol/L Carbon Dioxide 19 L (22-30) mmol/L Anion Gap 10.8 (5-15) MEQ/L BUN 13 (7-17) mg/dL Creatinine 0.71 (0.52-1.04) mg/dL Estimated GFR 88.1 ML/MIN Glucose 57 L (74-106) mg/dL Calcium 8.0 L (8.4-10.2) mg/dL Magnesium 1.8 (1.6-2.3) mg/dL Total Bilirubin 0.40 (0.2-1.3) mg/dL AST 37 H (14-36) U/L ALT 15 (0-35) U/L Alkaline Phosphatase 56 (38-126) U/L Serum Total Protein 5.5 L (6.3-8.2) g/dL Albumin 3.0 L (3.5-5.0) g/dL Acetaminophen < 10 L (10-30) ug/ml - Radiology Exams Ordered Rad Exams-Entire Visit: Radiology Procedures Category Date Time Status CHEST 1 VIEW (PORTABLE) Stat Exams 06/08/24 16:56 Completed - Procedures and Test Procedures and Tests throughout Hospitalization: Therapy Orders & Screens 06/08/24 16:46 Respiratory Therapy Assessment DAILY Comment: 06/09/24 08:48 Qualify for Home Oxygen TODAY Comment: Diagnosis: hyponatremia/WEAKNESS 06/09/24 15:25 Respiratory Therapy Assessment DAILY Comment: Diagnosis: hyponatremia/WEAKNESS Discharge Exam General Appearance: no apparent distress Neurologic Exam: alert, oriented x 3, cooperative Eye Exam: PERRL Ears, Nose, Throat Exam: normal ENT inspection Neck Exam: normal inspection Respiratory Exam: crackles/rales Cardiovascular Exam: regular rate/rhythm, normal heart sounds Gastrointestinal/Abdomen Exam: soft, normal bowel sounds Pelvic Exam: deferred Rectal Exam: deferred Back Exam: normal inspection Extremity Exam: normal inspection Skin Exam: normal color Final Diagnosis/Problem List - Final Discharge Diagnosis/Problem (1) Hyponatremia Current Visit: Yes Status: Acute Code(s): E87.1 - HYPO-OSMOLALITY AND HYPONATREMIA (2) Pneumonia Current Visit: Yes Status: Acute Code(s): J18.9 - PNEUMONIA, UNSPECIFIED ORGANISM (3) Hypomagnesemia Current Visit: Yes Status: Acute Code(s): E83.42 - HYPOMAGNESEMIA (4) COPD (chronic obstructive pulmonary disease) Current Visit: Yes Status: Chronic (5) Chills Current Visit: Yes Status: Resolved (6) HTN (hypertension) Current Visit: Yes Status: Chronic Code(s): I10 - ESSENTIAL (PRIMARY) HYPERTENSION - Discharge Disposition: Home, Self-Care Condition: Stable Prescriptions: New cefuroxime axetiL [Cefuroxime] 500 mg PO BID 7 Days #14 tablet Continue Lisinopril 10 mg [Zestril 10 MG] 10 mg PO DAILY Fluticasone/Vilanterol [Breo Ellipta 100-25 Mcg Inhalr] 1 ea DAILY Clopidogrel Bisulfate [Clopidogrel] 75 mg PO DAILY Additional Instructions: Call PCP to get sodium and magnesium levels checked by this week Follow up with: REBEKAH MCKEON [CONSULTING PHYSICIAN] - 06/23/24 3:00 pm (APPOINTMENT IN THE [facility] OFFICE) GREGORIO PARISI NP [Primary Care Provider] - 06/11/24 10:15 am
[2024-06-10] MEDS: PATIENT OWN MEDICATION IH SCH (06:52)
--- NOTE | 2024-06-10 08:52 | XRAY ---
Indication: Short of breath. Comparison: June 08, 2024 Portable apical lordotic chest demonstrates new left base infiltrate/atelectasis/effusion. Remaining heart and right lung unremarkable.
[2024-06-10] MEDS: ROCEPHIN 1 GM / 100 ML NaCl 1 GM/100 ML IVPB IV SCH (10:14)
[2024-06-10] MEDS: Zithromax 500 MG/ 250 ML NaCl Premix 500 MG/250 ML IVPB IV SCH (10:14)
[2024-06-10 11:59] VITALS: BP 108/58; PULSE 75; TEMP 98.2; O2SAT 97
[2024-06-10 12:10] VITALS: RESP 18
== END 2024-06-10 12:40 | disposition home or self-care (01) ==
LOC: ED 16:07 → MED SURG 22:11
PROVIDERS: ADMIT Student in an Organized Health Care Education/Training Program; ATTEND Student in an Organized Health Care Education/Training Program
DX: E87.1 Hypo-osmolality and hyponatremia (principal); E83.42 Hypomagnesemia; J44.9 Chronic obstructive pulmonary disease, unspecified; R68.83 Chills (without fever); I10 Essential (primary) hypertension; J18.9 Pneumonia, unspecified organism; Z79.899 Other long term (current) drug therapy; F17.200 Nicotine dependence, unspecified, uncomplicated
CPT/HCPCS: 0241U; 36415; 71045; 80048; 80053; 80143; 81001; 82310; 82533; 82570; 82947; 83735; 83930; 83935; 84100; 84145; 84156; 84295; 84300; 84443; 85025; 94640; 94760; 96360; 99285; G0378; Q3014; 99284; A9270-GY; J3475